=== PATIENT | female | born 1990 | race Caucasian/White ===

== ENCOUNTER 2017-04-18 15:52 | Observation (INO) | payer MEDICAID ==
[~2017-04-18] VITALS: Ht 149.9 cm; Wt 50.5 kg
[~2017-04-18 15:52] MED LIST: CIPR-9 PO; NAPR1TAB34 PO; ZOFR4TAB PO
[2017-04-18 15:54] VITALS: BP 112/61; PULSE 72; RESP 16; TEMP 97.4; O2SAT 97
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
[2017-04-18] MEDS ORDERED: SODIUM CHLOR 0.9% 1000 ML INJ 1,000 ML IV ONE ×2 (16:27→18:15)
[2017-04-18] MEDS ORDERED: SODIUM CHLORIDE 0.9% FLUSH 10 ML FLUSH IVF PRN (16:30)
[2017-04-18] MEDS ORDERED: diphenhydrAMINE HCL 50 MG/ML VIAL IV PUSH ONE (16:30)
[2017-04-18] MEDS ORDERED: ONDANSETRON HCL 4 MG/2 ML VIAL IVP ONE (16:30)
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
[2017-04-18] MEDS ORDERED: NALOXONE HCL 0.4 MG/ML AMP IV PUSH PRN (16:45)
[2017-04-18 17:16] LABS: ALT (GPT) 126 U/L (10-53); ANION GAP 9 MEQ/L (5-15); AST (GOT) 81 U/L (15-37); BICARBONATE 24.3 MEQ/L (21.0-32.0); BLOOD UREA NITROGEN 9 MG/DL (7-18); CHLORIDE 106 MEQ/L (98-107); GLOMERULAR FILTRATION RATE 79 ML/MIN (>89); POTASSIUM 3.4 MEQ/L (3.5-5.1); SODIUM (NA) 139 MEQ/L (136-145)
[2017-04-18 17:18] LABS: ACETAMINOPHEN LESS THAN 2.0 MCG/ML (10.0-30.0); ALKALINE PHOSPHATASE 58 U/L (45-117); TOTAL BILIRUBIN ADULT 0.7 MG/DL (0.2-1.0)
[2017-04-18] MEDS ORDERED: POTASSIUM CHLORIDE 10 MEQ CONTROLLED RELEASE TAB PO ONE (17:30)
[2017-04-18 17:46] VITALS: BP 125/63; PULSE 96; RESP 15; O2SAT 99
[2017-04-18 17:48] VITALS: PULSE 72; RESP 14; O2SAT 99
[2017-04-18 18:10] LABS: BACTERIA, URINE RARE /hpf; BLOOD, URINE NEG (NEG); COMMENT (UR) CULT NOT INDICATED; CULTURE IF INDICATED CULT NOT INDICATED; GLUCOSE,URINE NEG (NEG); KETONE, URINE NEG (NEG); MUCUS URINE FEW /lpf (OCC); NITRITE,URINE NEG (NEG); SQUAMOUS EPITHELIAL CELL URINE 2 /hpf (0-5); URINE COLOR YELLOW (YELLW/STRAW)
[2017-04-18 18:17] LABS: AMPHETAMINE, URINE POS (NEG); BARBITURATES, URINE NEG (NEG); COCAINE, URINE NEG (NEG)
[2017-04-18 18:54] LABS: AUTOMATED NEUTROPHIL # 6.9 TH/MM3 (1.8-7.7); BASOPHIL % 0.4 % (0.0-2.0); EOSINOPHIL # 0.2 TH/MM3 (0-0.4); EOSINOPHIL % 2.2 % (0.0-4.0); HEMATOCRIT 35.7 % (35.0-46.0); HEMO FLAGS DIFF FINAL; LYMPH % 22.5 % (9.0-44.0); LYMPHOCYTE # 2.4 TH/MM3 (1.0-4.8); MEAN CELL VOLUME 83.3 FL (80.0-100.0); MEAN CORPUSCULAR HEMOGLOBIN 27.8 PG (27.0-34.0); MEAN CORPUSCULAR HGB CONC 33.4 % (32.0-36.0); MONO % 10.2 % (0.0-8.0); NEUT % 64.7 % (16.0-70.0); PLATELET COUNT 161 TH/MM3 (150-450); RED BLOOD COUNT 4.29 MIL/MM3 (4.00-5.30); WHITE BLOOD COUNT 10.7 TH/MM3 (4.0-11.0)
[2017-04-18] MEDS ORDERED: NALOXONE HCL 0.4 MG/ML AMP IV PRN (20:00)
[2017-04-18] MEDS ORDERED: SODIUM CHLORIDE 0.9% FLUSH 10 ML FLUSH IV FLUSH PRN (20:00)
[2017-04-18 20:06] VITALS: BP 132/80; PULSE 89; RESP 18; O2SAT 98
[2017-04-18] MEDS: SODIUM CHLORIDE 0.9% FLUSH 10 ML FLUSH IV FLUSH SCH (21:00)
[2017-04-18 21:40] VITALS: BP 105/63; PULSE 87; RESP 17; TEMP 98.5; O2SAT 96
[2017-04-18 22:12] VITALS: PULSE 80
[2017-04-18] MEDS: SODIUM CHLOR 0.9% 1000 ML INJ 1,000 ML IV SCH (22:37)
[2017-04-19] VITALS (9 sets, daily range): BP systolic 85–136; BP diastolic 47–60; PULSE 77–92; RESP 17–20; TEMP 98–102.7; O2SAT 94–100
--- NOTE | 2017-04-19 01:53 | HHI.HP ---
[facility] No Primary Care Physician Admission Diagnosis HYPOXIA, IVDU Diagnoses: Travel History International Travel<30 Days: No Contact w/Intl Traveler <30 Da: No Traveled to Known Affected Are: No History of Present Illness History from ER PA communication, nursing staff, and patient herself, and review of medical records. Patient is extremely poor historian. She stated that she came to the hospital because she knew that something was wrong. She states she was feeling something wrong and she herself called the ambulance. She denies syncope. However she reports that she was very drowsy and not feeling herself all day long. She also reports of palpitations. Otherwise she denies any nausea/vomiting/diarrhea/urinary burning or pain on urination. She denies seeing any blood in her stool or in her urine. She admits to injecting crystal meth last night. She reports that she is itching all over and felt as though things are jumping out of her skin. She reports she has not been injecting for several months and she relapsed last night. Patient is quite drowsy at the time of my exam. She has her eyes closed all this time and she was sitting up to answer my questions. Her boyfriend is at the bedside. However both boyfriend and herself has her eyes closed and had trouble maintaining upright position while sitting. The or clearly quite intoxicated. In the emergency room, patient was also noted to be hypoxic as per the reports. They had given her Narcan times one dose after which her oxygenation picked up. Past Family Social History Past Medical History hepatitis Past Surgical History Reported Medications None Allergies: Coded Allergies: No Known Allergies (Unverified , 11/21/16) Family History Unknown Social History States she smokes occasionally. Reports his social drinking. Denies any regular drinking. Reports IV drug abuse. Physical Exam Vital Signs Vital Signs Date Time Temp Pulse Resp B/P Pulse Ox O2 Delivery O2 Flow Rate FiO2 04/19/17 00:05 98.0 80 17 85/52 98 04/18/17 22:12 80 04/18/17 21:40 98.5 87 17 105/63 96 04/18/17 20:06 89 18 132/80 98 Room Air 04/18/17 19:06 70 15 96 Nasal Cannula 2 04/18/17 17:48 72 14 99 Nasal Cannula 2 04/18/17 17:46 96 15 125/63 99 Nasal Cannula 4 04/18/17 15:54 97.4 72 16 112/61 97 Room Air Physical Exam GENERAL: This is a well-nourished, well-developed patient, intoxicated, sitting up in bed but was having difficulty maintaining her posture because of drowsiness and falling back asleep. SKIN: Multiple skin scratches and track mathew. HEAD: Atraumatic. Normocephalic. No temporal or scalp tenderness. EYES: No scleral icterus. No injection or drainage. ENT: Nose without bleeding, purulent drainage or septal hematoma. Airway patent. NECK: Trachea midline. No JVD Supple, nontender, no meningeal signs. CARDIOVASCULAR: Regular rate and rhythm without murmurs, gallops, or rubs. RESPIRATORY: Clear to auscultation. Breath sounds equal bilaterally. No wheezes , rales, or rhonchi. GASTROINTESTINAL: Abdomen soft, non-tender, nondistended.. No guarding. MUSCULOSKELETAL: Extremities without clubbing, cyanosis, or edema., No calf tenderness. NEUROLOGICAL: Awake and alert. Motor and sensory grossly within normal limits. Normal speech. Laboratory Laboratory Tests Test 04/18/17 04/18/17 04/18/17 14:30 17:40 17:45 Sodium Level 139 Potassium Level 3.4 Chloride Level 106 Carbon Dioxide Level 24.3 Anion Gap 9 Blood Urea Nitrogen 9 Creatinine 0.87 Estimat Glomerular Filtration 79 Rate Random Glucose 82 Lactic Acid Level 1.1 Calcium Level 8.5 Total Bilirubin 0.7 Aspartate Amino Transf 81 (AST/SGOT) Alanine Aminotransferase 126 (ALT/SGPT) Alkaline Phosphatase 58 Total Protein 6.9 Albumin 3.5 Acetaminophen Level LESS THAN 2.0 Ethyl Alcohol Level LESS THAN 3 White Blood Count 10.7 Red Blood Count 4.29 Hemoglobin 11.9 Hematocrit 35.7 Mean Corpuscular Volume 83.3 Mean Corpuscular Hemoglobin 27.8 Mean Corpuscular Hemoglobin 33.4 Concent Red Cell Distribution Width 13.0 Platelet Count 161 Mean Platelet Volume 8.0 Neutrophils (%) (Auto) 64.7 Lymphocytes (%) (Auto) 22.5 Monocytes (%) (Auto) 10.2 Eosinophils (%) (Auto) 2.2 Basophils (%) (Auto) 0.4 Neutrophils # (Auto) 6.9 Lymphocytes # (Auto) 2.4 Monocytes # (Auto) 1.1 Eosinophils # (Auto) 0.2 Basophils # (Auto) 0.0 CBC Comment DIFF FINAL Differential Comment Salicylates Level LESS THAN 1.7 Urine Color YELLOW Urine Turbidity CLEAR Urine pH 6.0 Urine Specific [place] 1.010 Urine Protein NEG Urine Glucose (UA) NEG Urine Ketones NEG Urine Occult Blood NEG Urine Nitrite NEG Urine Bilirubin NEG Urine Urobilinogen LESS THAN 2.0 Urine Leukocyte Esterase NEG Urine RBC 1 Urine WBC 2 Urine Squamous Epithelial 2 Cells Urine Amorphous Sediment RARE Urine Bacteria RARE Urine Mucus FEW Microscopic Urinalysis Comment CULT NOT INDICATED Urine Opiates Screen POS Urine Barbiturates Screen NEG Urine Amphetamines Screen POS Urine Benzodiazepines Screen NEG Urine Cocaine Screen NEG Urine Cannabinoids Screen POS Result Diagram: 04/18/17 1740 04/18/17 1430 Assessment and Plan Assessment and Plan Impression: Altered mental statussecondary to drug intoxication IV drug abusewas crystal meth Hypokalemia Elevated LFTsreports history of hepatitis Plan: Will monitor patient overnight. Supportive care. Potassium was replaced. This patient was consult for discharge planning. DVT prophylaxiswith ambulation.Pt will likely be discharged in am. Should she stay longer, will consider chemical prophylaxis Discussed Condition With patient, boyfriend at the bedside, ER Kim Larios MD April 19, 2017 01:53
[2017-04-19] MEDS: SODIUM CHLORIDE 0.9% FLUSH 10 ML FLUSH IV FLUSH SCH ×2 (09:00→21:47)
[2017-04-19 11:34] LABS: AUTOMATED NEUTROPHIL # 2.9 TH/MM3 (1.8-7.7); BASOPHIL % 0.6 % (0.0-2.0); EOSINOPHIL # 0.2 TH/MM3 (0-0.4); EOSINOPHIL % 3.4 % (0.0-4.0); HEMATOCRIT 33.3 % (35.0-46.0); HEMO FLAGS DIFF FINAL; LYMPH % 22.6 % (9.0-44.0); LYMPHOCYTE # 1.1 TH/MM3 (1.0-4.8); MEAN CELL VOLUME 82.4 FL (80.0-100.0); MEAN CORPUSCULAR HEMOGLOBIN 28.4 PG (27.0-34.0); MEAN CORPUSCULAR HGB CONC 34.5 % (32.0-36.0); MONO % 11.4 % (0.0-8.0); PLATELET COUNT 161 TH/MM3 (150-450); RED BLOOD COUNT 4.04 MIL/MM3 (4.00-5.30); RED CELL DISTRIBUTION WIDTH 13.3 % (11.6-17.2); WHITE BLOOD COUNT 4.7 TH/MM3 (4.0-11.0)
[2017-04-19] MEDS: SODIUM CHLOR 0.9% 1000 ML INJ 1,000 ML IV SCH ×2 (11:34→15:55)
[2017-04-19 11:55] LABS: BICARBONATE 27.3 MEQ/L (21.0-32.0); POTASSIUM 3.8 MEQ/L (3.5-5.1)
--- NOTE | 2017-04-19 12:06 | HHI.PR ---
Subjective Remarks Follow-up for toxic encephalopathy. The patient is awake and alert. She refuses to answer certain questions. She denies any chest pain, shortness of breath, nausea, vomiting. She's been tolerating oral intake. When asked what she took yesterday she states "I don't know". When asked if she injected anything she does not respond. When asked if she knows that her liver problems , she states that she follows with a "stomach doctor" but she will not tell me who. She reports that she has not been ambulating yet because she does not "feel good", although when asked further she does not specify what she means by this. Discussed with RN, no acute issues, patient has been ambulating to the restroom with no difficulties. Objective Vitals Vital Signs Date Time Temp Pulse Resp B/P Pulse Ox O2 Delivery O2 Flow Rate FiO2 04/19/17 11:21 99.6 80 20 88/49 98 04/19/17 07:42 78 04/19/17 07:38 99.0 80 18 111/60 98 04/19/17 04:33 99.2 90 17 90/47 97 04/19/17 00:05 98.0 80 17 85/52 98 04/18/17 22:12 80 04/18/17 21:40 98.5 87 17 105/63 96 04/18/17 20:06 89 18 132/80 98 Room Air 04/18/17 19:06 70 15 96 Nasal Cannula 2 04/18/17 17:48 72 14 99 Nasal Cannula 2 04/18/17 17:46 96 15 125/63 99 Nasal Cannula 4 04/18/17 15:54 97.4 72 16 112/61 97 Room Air I/O 04/18/17 04/18/17 04/18/17 04/19/17 04/19/17 04/19/17 07:00 15:00 23:00 07:00 15:00 23:00 Intake Total 200 ml 200 ml Balance 200 ml 200 ml Intake Oral 200 ml 200 ml Result Diagram: 04/19/17 1055 04/18/17 1160 Objective Remarks GENERAL: Well-developed well-nourished. In no acute distress. SKIN: Warm and dry. No lesions noted. HEENT: Normocephalic. Pupils equal and round. Mucous membranes pink and moist. CARDIOVASCULAR: Regular rate and rhythm. No murmur appreciated. RESPIRATORY: No accessory muscle use. Clear to auscultation. Breath sounds equal bilaterally. GASTROINTESTINAL: Abdomen soft, non-tender, nondistended. Bowel sounds x4. MUSCULOSKELETAL: No obvious deformities. No clubbing or cyanosis. No edema. NEUROLOGICAL: Awake and alert. No focal neurological deficits. Moves upper and lower extremities spontaneously. Normal speech. PSYCHIATRIC: Guarded mood and affect; insight and judgment normal. A/P Assessment and Plan 26-year-old female with a past medical history of hepatitis C and polysubstance abuse who presented with: Toxic encephalopathy: The patient had reportedly used IV Dilaudid and crystal meth yesterday. UDS positive for opiates, amphetamines, and cannabis. IVF. Supportive care. Improving. Transaminitis with a history of hepatitis C: Transaminases are persistently elevated upon review previous labs. Follow-up LFTs today. Continue outpatient GI follow-up. Low-grade fevers: Tmax 99.9. This could definitely be secondary to amphetamine use. UA clear. No leukocytosis. D/W Dr. Doran, monitor overnight for true fevers, further workup if indicated. Discharge Planning If no further signs of infectious etiology, hopefull discharge tomorrow if stable. Lucio Mckeon April 19, 2017 12:06
[2017-04-19] MEDS ORDERED: SODIUM CHLOR 0.9% 1000 ML INJ 1,000 ML IV ONE (12:15)
[2017-04-19 13:09] LABS: INDIRECT BILIRUBIN 0.4 MG/DL (0.0-0.8); TOTAL BILIRUBIN ADULT 0.6 MG/DL (0.2-1.0)
--- NOTE | 2017-04-19 17:25 | EKG ---
Date Performed: 04/18/2017 Time Performed: 17:27:39 PTAGE: 26 years EKG: Sinus rhythm WITH SHORT [place] INTERVAL NONSPECIFIC T-WAVE ABNORMALITY BORDERLINE ECG INTERPRETATION BASED ON A DEFAU LT AGE OF 40 YEARS Compared to the PREVIOUS TRACING , no significant change DOCTOR: Jason Duncan Interpretating Date/Time 04/19/2017 17:24:25
--- NOTE | 2017-04-19 17:28 | EKG ---
Date Performed: 04/18/2017 Time Performed: 16:21:56 PTAGE: 26 years EKG: SINUS BRADYCARDIA WITH MARKED SINUS ARRHYTHMIA BORDERLINE ECG INTERPRETATION BASED ON A DEF CORRINE AGE OF 40 YEARS NO PREVIOUS TRACING DOCTOR: Jason Duncan Interpretating Date/Time 04/19/2017 17:27:49
[2017-04-19] MEDS ORDERED: diphenhydrAMINE HCL 25 MG CAP PO PRN (18:00)
[2017-04-19] MEDS ORDERED: Vancomycin Consult Pharmacy 1 EA OTHER SCH (20:00)
[2017-04-19] MEDS: PIPERACIL-TAZO 4.5 GM PREMIX 100 ML IV SCH (20:43)
--- NOTE | 2017-04-19 21:19 | RADRPT ---
EXAM DATE/TIME: 04/19/2017 20:31 [place] COMPARISON: CHEST PA & LAT, April 29, 2015, 23:57. INDICATIONS : Fever MEDICAL HISTORY : None. SURGICAL HISTORY : None. ENCOUNTER: Initial ACUITY: 1 day PAIN SCORE: 0/10 LOCATION: Bilateral chest FINDINGS: PA and lateral views of the chest demonstrate the lungs to be symmetrically aerated without evidence of mass, infiltrate or effusion. The cardiomediastinal contours are unremarkable. Osseous structure s are intact. CONCLUSION: No evidence of acute cardiopulmonary disease. Aaron Ibrahim MD on April 19, 2017 at 21:17 Board Certified Radiologist. This report was verified electronically.
[2017-04-19] MEDS: VANCOMYCIN INJ 700 MG in SODIUM CHLOR 0.9% 250 ML INJ 250 ML IV SCH (21:48)
[2017-04-20] VITALS (9 sets, daily range): BP systolic 89–127; BP diastolic 53–76; PULSE 64–82; RESP 16–18; TEMP 97.8–100.3; O2SAT 94–100
[2017-04-20] MEDS: PIPERACIL-TAZO 4.5 GM PREMIX 100 ML IV SCH ×4 (02:25→19:41)
[2017-04-20] MEDS: SODIUM CHLOR 0.9% 1000 ML INJ 1,000 ML IV SCH ×2 (02:25→13:09)
[2017-04-20] MEDS: SODIUM CHLORIDE 0.9% FLUSH 10 ML FLUSH IV FLUSH SCH ×2 (09:00→21:00)
[2017-04-20] MEDS: VANCOMYCIN INJ 700 MG in SODIUM CHLOR 0.9% 250 ML INJ 250 ML IV SCH ×2 (09:30→20:47)
--- NOTE | 2017-04-20 11:26 | EC ---
Study Study Date:04/20/2017 STUDY CONCLUSIONS SUMMARY - Procedure narrative: Transthoracic echocardiography. Image quality was good. Scanning was performed from the parasternal, apical, and subcostal acoustic windows. - Left ventricle: The cavity size was normal. Wall thickness was normal. Systolic function was normal. The estimated ejection fraction was in the range of 60% to 65%. Wall motion was normal; there were no regional wall motion abnormalities. - Tricuspid valve: Trace regurgitation. If LV function is below 40, please consider prescribing an ACEI or ARB or document rationale for non-use. PROCEDURE DATA STUDY STATUS: Elective. Procedure: Transthoracic echocardiography. Image quality was good. Scanning was performed from the parasternal, apical, and subcostal acoustic windows. Study completion: The patient tolerated the procedure well. Transthoracic echocardiography. M-mode, complete 2D, complete spectral Doppler, and color Doppler. Patient status: Inpatient. CARDIAC ANATOMY LEFT VENTRICLE: The cavity size was normal. Wall thickness was normal. Systolic function was normal. The estimated ejection fraction was in the range of 60% to 65%. Wall motion was normal; there were no regional wall motion abnormalities. AORTIC VALVE: Trileaflet; normal thickness leaflets. Doppler: Transvalvular velocity was within the normal range. There was no stenosis. No regurgitation. AORTA: Aortic root: The aortic root was normal in size. MITRAL VALVE: Structurally normal valve. Doppler: Transvalvular velocity was within the normal range. There was no evidence for stenosis. No regurgitation. Peak gradient: 4mm Hg (D). LEFT ATRIUM: The atrium was normal in size. RIGHT VENTRICLE: The cavity size was normal. Wall thickness was normal. PULMONIC VALVE: Doppler: Transvalvular velocity was within the normal range. There was no evidence for stenosis. No regurgitation. TRICUSPID VALVE: Structurally normal valve. Doppler: Transvalvular velocity was within the normal range. Trace regurgitation. PULMONARY ARTERY: The main pulmonary artery was normal-sized. Systolic pressure was within the normal range. RIGHT ATRIUM: The atrium was normal in size. PERICARDIUM: There was no pericardial effusion. SYSTEMIC VEINS: Inferior vena cava: The vessel was normal in size. BASIC MEASUREMENTS ADULT Normal Left ventricle LV internal dimension, ED, chordal level, *41.5 mm 43-52 PLAX LV internal dimension, ES, chordal level, 29 mm 23-38 PLAX Fractional shortening, chordal level, PLAX 30 % >29 LV posterior wall thickness, ED 5.45 mm IVS/LVPW ratio, ED 1.22 <1.3 Ventricular septum Septal thickness, ED 6.66 mm Aortic valve Leaflet separation 21 mm 15-26 Left atrium Anterior-posterior dimension 32 mm Right ventricle RV internal dimension, ED, PLAX *18.8 mm 19-38 BASIC MEASUREMENTS ADULT Normal Aortic valve Leaflet separation 21 mm 15-26 Aorta Root diameter, ED 30 mm 20-37 DOPPLER MEASUREMENTS ADULT Normal Mitral valve Peak E-wave velocity 98.7 cm/s Peak A-wave velocity 48.1 cm/s Peak gradient, D 4 mm Hg Peak E/A ratio 2.1 Tricuspid valve Regurgitant peak velocity 217 cm/s Peak RV-RA gradient, S 19 mm Hg Maximal regurgitant velocity 217 cm/s LEGEND: Mean values are shown as u=mean value. Asterisk (*) mathew values outside specified normal range. Prepared and signed by Rivera Garcia [id number]
[2017-04-20 13:19] LABS: AUTOMATED NEUTROPHIL # 1.5 TH/MM3 (1.8-7.7); BASOPHIL % 1.1 % (0.0-2.0); EOSINOPHIL # 0.1 TH/MM3 (0-0.4); EOSINOPHIL % 2.4 % (0.0-4.0); HEMATOCRIT 36.3 % (35.0-46.0); HEMO FLAGS DIFF FINAL; LYMPH % 30.7 % (9.0-44.0); LYMPHOCYTE # 0.9 TH/MM3 (1.0-4.8); MEAN CELL VOLUME 82.9 FL (80.0-100.0); MEAN CORPUSCULAR HEMOGLOBIN 27.3 PG (27.0-34.0); MEAN CORPUSCULAR HGB CONC 32.9 % (32.0-36.0); MONO % 17.7 % (0.0-8.0); NEUT % 48.1 % (16.0-70.0); PLATELET COUNT 143 TH/MM3 (150-450); RED BLOOD COUNT 4.38 MIL/MM3 (4.00-5.30); RED CELL DISTRIBUTION WIDTH 13.3 % (11.6-17.2)
[2017-04-20 13:50] LABS: ALKALINE PHOSPHATASE 57 U/L (45-117); ALT (GPT) 121 U/L (10-53); ANION GAP 9 MEQ/L (5-15); AST (GOT) 74 U/L (15-37); BICARBONATE 27.3 MEQ/L (21.0-32.0); BLOOD UREA NITROGEN 5 MG/DL (7-18); CHLORIDE 107 MEQ/L (98-107); GLOMERULAR FILTRATION RATE 73 ML/MIN (>89); POTASSIUM 3.6 MEQ/L (3.5-5.1); SODIUM (NA) 143 MEQ/L (136-145); TOTAL BILIRUBIN ADULT 0.6 MG/DL (0.2-1.0)
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
[2017-04-20] MEDS ORDERED: LORazepam 0.5 MG TAB PO PRN (18:15)
[2017-04-21 00:45] VITALS: PULSE 81
[2017-04-21] MEDS: PIPERACIL-TAZO 4.5 GM PREMIX 100 ML IV SCH ×2 (02:04→08:23)
[2017-04-21] MEDS: SODIUM CHLOR 0.9% 1000 ML INJ 1,000 ML IV SCH ×2 (02:04→08:23)
[2017-04-21 05:15] VITALS: BP 96/57; PULSE 51; RESP 16; TEMP 98.9; O2SAT 93
[2017-04-21] MEDS: VANCOMYCIN INJ 700 MG in SODIUM CHLOR 0.9% 250 ML INJ 250 ML IV SCH (09:12)
[2017-04-21] MEDS: SODIUM CHLORIDE 0.9% FLUSH 10 ML FLUSH IV FLUSH SCH (09:12)
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
[2017-04-21] MEDS ORDERED: PHARMACY ORDERED LAB ONE (09:45)
[2017-04-21 10:09] VITALS: BP 108/61; PULSE 66; RESP 20; TEMP 96.8; O2SAT 95
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
== END 2017-04-21 11:12 | disposition left against medical advice (07) ==
LOC: NEPE 15:52 → NEDA 19:11 → NEPFCDU 21:34
PROVIDERS: ADMIT Internal Medicine; ATTEND Internal Medicine
DX: R09.02 Hypoxemia (principal); R65.10 Systemic inflammatory response syndrome (SIRS) of non-infectious origin without acute organ dysfunction; A41.9 Sepsis, unspecified organism; G92 Toxic encephalopathy; F19.10 Other psychoactive substance abuse, uncomplicated; F41.9 Anxiety disorder, unspecified; F32.9 Major depressive disorder, single episode, unspecified; F17.200 Nicotine dependence, unspecified, uncomplicated; R00.2 Palpitations; E87.6 Hypokalemia; B19.20 Unspecified viral hepatitis C without hepatic coma; R74.0 Nonspecific elevation of levels of transaminase and lactic acid dehydrogenase [LDH]; I10 Essential (primary) hypertension; D72.819 Decreased white blood cell count, unspecified; R00.0 Tachycardia, unspecified; F15.90 Other stimulant use, unspecified, uncomplicated; L98.9 Disorder of the skin and subcutaneous tissue, unspecified
CPT/HCPCS: 71020; 76937; 80048; 80053; 80076; 80202; 80307; 81001; 83605; 85025; 87040; 93005; 93306; 96374; 96375; 99285; G0378; J1200; J2310; J2405; J2543; J3370; J7030; J7050

== ENCOUNTER 2017-05-14 21:18 | Emergency (ER) | payer MEDICAID ==
[~2017-05-14] VITALS: Ht 152.4 cm; Wt 45.0 kg
[2017-05-14 21:21] VITALS: BP 111/77; PULSE 84; RESP 16; TEMP 98.7; O2SAT 99
[2017-05-14 21:55] LABS: BLOOD, URINE LARGE (NEG); COMMENT (UR) CULTURE INDICATED; CULTURE IF INDICATED CULTURE INDICATED; GLUCOSE,URINE NEG (NEG); KETONE, URINE NEG (NEG); MUCUS URINE FEW /lpf (OCC); NITRITE,URINE NEG (NEG); SQUAMOUS EPITHELIAL CELL URINE 3 /hpf (0-5); URINE COLOR YELLOW (YELLW/STRAW)
--- NOTE | 2017-05-14 22:56 | PD ---
HPI Chief Complaint: Complaint Time Seen by Provider: 22:45 Travel History International Travel<30 days: No Contact w/Intl Traveler<30days: No Traveled to known affect area: No History of Present Illness HPI Patient's 26-year-old female presenting to emergency for evaluation of right flank and groin pain, hematuria. Patient states that she was evaluated at [facility] several days ago, she was treated for STDs and prescribed antibiotics which she has been reportedly compliant with. She continues to have the same symptoms she had then. She reports feeling nauseated but no vomiting. She denies any vaginal bleeding or discharge, her last menstrual cycle was in the beginning of March. She denies any fever, chills, chest pain, shortness of breath. Patient does admit to using heroin and meth recently. She has a history of hepatitis C. [employer] Past Medical History Asthma: No Blood Disorders: No Depression: No Heart Rhythm Problems: No Cancer: No Cardiovascular Problems: No High Cholesterol: No Chemotherapy: No Chest Pain: No Congestive Heart Failure: No COPD: No Diabetes: No Diminished Hearing: No Endocrine: No Gastrointestinal Disorders: Yes Genitourinary: No Hepatitis: Yes (C) Immune Disorder: No Musculoskeletal: No Neurologic: No Psychiatric: No Reproductive: No Respiratory: No Radiation Therapy: No Sleep Apnea: No Thyroid Disease: No Tetanus Vaccination: Unknown Influenza Vaccination: Yes ?: Not LMP: NEGATIVE PREG TEST 1 WEEK AGO : 2 Para: 1 : 1 Past Surgical History Gynecologic Surgery: Yes () Other Surgery: Yes Social History Alcohol Use: No Tobacco Use: Yes Substance Use: Yes (heroin and meth) Allergies-Medications (Allergen,Severity, Reaction): Coded Allergies: No Known Allergies (Unverified , 11/21/16) Reported Meds & Prescriptions Reported Meds & Active Scripts Active No Active Prescriptions or Reported Medications Review of Systems Except as stated in HPI: all other systems reviewed are Neg Gastrointestinal: Positive: Nausea, Abdominal Pain Genitourinary: Positive: Hematuria, Pelvic Pain, Flank Pain, No: Discharge, Vaginal Bleeding Physical Exam Narrative GENERAL: Thin, well-developed, well-nourished, alert female. Resting comfortably in no acute distress. SKIN: Focused skin assessment warm/dry. HEAD: Atraumatic. Normocephalic. EYES: Pupils equal and round. No scleral icterus. No injection or drainage. ENT: No nasal bleeding or discharge. Mucous membranes pink and moist. NECK: Trachea midline. No JVD. CARDIOVASCULAR: Regular rate and rhythm. No murmur appreciated. RESPIRATORY: No accessory muscle use. Clear to auscultation. Breath sounds equal bilaterally. GASTROINTESTINAL: Abdomen soft, non-tender, nondistended. Hepatic and splenic margins not palpable. MUSCULOSKELETAL: No obvious deformities. No clubbing. No cyanosis. No edema. Positive CVAT on the right GENITOURINARY: Normal external genitalia without lesions or erythema. Vaginal vault without blood or drainage. Cervical os was closed without drainage. No cervical motion tenderness. Uterus nontender and nonenlarged. Left adnexa nontender without masses. Right adnexa was mildly tender to palpation, no masses noted. NEUROLOGICAL: Awake and alert. No obvious cranial nerve deficits. Motor grossly within normal limits. Normal speech. PSYCHIATRIC: Appropriate mood and affect; insight and judgment normal. Data Data Last Documented VS Vital Signs Date Time Temp Pulse Resp B/P Pulse Ox O2 Delivery O2 Flow Rate FiO2 05/14/17 22:00 16 05/14/17 21:21 98.7 84 111/77 99 Orders Urinalysis - C+S If Indicated (05/14/17 21:25) Urine Culture (05/14/17 21:28) Gc And Chlamydia Pcr (05/14/17 22:50) Wet Prep Profile (05/14/17 22:50) Ed Urine Pregnancytest Poc (05/14/17 22:50) Ct Abd/Pel W/O Iv Contrast (05/14/17 ) Labs Laboratory Tests Test 05/14/17 05/14/17 21:28 22:55 Urine Color YELLOW Urine Turbidity CLEAR Urine pH 7.0 Urine Specific Yancey 1.021 Urine Protein TRACE mg/dL Urine Glucose (UA) NEG mg/dL Urine Ketones NEG mg/dL Urine Occult Blood LARGE Urine Nitrite NEG Urine Bilirubin NEG Urine Urobilinogen LESS THAN 2.0 MG/DL Urine Leukocyte Esterase NEG Urine RBC /hpf Urine WBC 17 /hpf Urine Squamous Epithelial 3 /hpf Cells Urine Amorphous Sediment RARE Urine Mucus FEW /lpf Microscopic Urinalysis Comment CULTURE INDICATED Clue Cells (Wet Prep) NONE SEEN Vaginal Trichomonas (Wet Prep) NONE SEEN Vaginal Yeast (Wet Prep) NONE SEEN MDM Medical Decision Making Medical Screen Exam Complete: Yes Emergency Medical Condition: Yes Interpretation(s) Last Impressions Abdomen/Pelvis CT 05/14/17 0000 Signed Impressions: Service Date/Time: Sunday, May 14, 2017 23:24 - CONCLUSION: Negative noncontrast CT of the abdomen and pelvis. No obstruction, stones, inflammatory changes or other acute abnormality demonstrated. Aaron Ibrahim MD Laboratory Tests Test 05/14/17 05/14/17 21:28 22:55 Urine Color YELLOW Urine Turbidity CLEAR Urine pH 7.0 Urine Specific Yancey 1.021 Urine Protein TRACE mg/dL Urine Glucose (UA) NEG mg/dL Urine Ketones NEG mg/dL Urine Occult Blood LARGE Urine Nitrite NEG Urine Bilirubin NEG Urine Urobilinogen LESS THAN 2.0 MG/DL Urine Leukocyte Esterase NEG Urine RBC /hpf Urine WBC 17 /hpf Urine Squamous Epithelial 3 /hpf Cells Urine Amorphous Sediment RARE Urine Mucus FEW /lpf Microscopic Urinalysis Comment CULTURE INDICATED Clue Cells (Wet Prep) NONE SEEN Vaginal Trichomonas (Wet Prep) NONE SEEN Vaginal Yeast (Wet Prep) NONE SEEN Vital Signs Date Time Temp Pulse Resp B/P Pulse Ox O2 Delivery O2 Flow Rate FiO2 05/14/17 22:00 16 05/14/17 21:21 98.7 84 16 111/77 99 Differential Diagnosis Ovarian cyst versus kidney stone versus UTI versus pyelonephritis versus appendicitis versus other Narrative Course Patient is a 26-year-old female presenting to emergency department for evaluation of hematuria and flank/pelvic pain. She was treated empirically for STDs several days ago at [facility] however she has had no vaginal discharge. She was also prescribed ciprofloxacin which she reports compliant with since that time. Pelvic exam was performed. GC, chlamydia, wet prep sent. Will defer treatment until labs have resulted since patient is asymptomatic and was recently treated empirically. CT scan of the abdomen and pelvis without IV contrast is ordered and pending to rule out renal calculi. CT scan of the abdomen and pelvis is negative for acute abnormality. We'll change patient's antibiotics due to continued urinary symptoms/hematuria. Patient was given strict return precautions. Patient was encouraged to increase fluid intake. She is encouraged follow-up with her primary doctor. Patient will be notified of results of GC and chlamydia however she was just treated at [facility] and has no symptoms. Patient stable for discharge. Discussed patient presentation and results with my attending physician prior to patient's discharge. Diagnosis Primary Impression: UTI (lower urinary tract infection) Referrals: [facility] Primary Care Physician Patient Instructions: General Instructions, Urinary Tract Infection in Women ( ED) Additional Instructions: Follow-up with your primary doctor Return to emergency department immediately for any new or worsening symptoms Complete full course of new antibiotic as prescribed Avoid illicit drug use Med/Other Pt SpecificInfo: Prescription(s) given Scripts Nitrofurantoin Monohydrate Macrocrystals 100 Mg [id number] Mg PO BID 7 Days Ref 0 Prov:Lilly Olmstead 05/14/17 Disposition: 01 DISCHARGE HOME Condition: Stable Lilly Olmstead May 14, 2017 22:56
--- NOTE | 2017-05-14 23:39 | RADRPT ---
EXAM DATE/TIME: 05/14/2017 23:24 [facility] COMPARISON: CT ABDOMEN & PELVIS W/O CONTRAST, November 21, 2016, 21:13. INDICATIONS : Hematuria and cramping. ORAL CONTRAST: No oral contrast ingested. RADIATION DOSE: 3.93 CTDIvol (mGy) MEDICAL HISTORY : Hepatitis C. SURGICAL HISTORY : None. ENCOUNTER: Initial ACUITY: 1 day PAIN SCALE: 4/10 LOCATION: Bilateral lower quadrant TECHNIQUE: Volumetric scanning of the abdomen and pelvis was performed. Using automated exposure control and ad justment of the mA and/or kV according to patient size, radiation dose was kept as low as reasonably achievable to obtain optimal diagnostic quality images. FINDINGS: LOWER LUNGS: The visualized lower lungs are clear. LIVER: Homogeneous density without lesion. There is no dilation of the biliary tree. No calcified gallston es. SPLEEN: Normal size without lesion. PANCREAS: Within normal limits. KIDNEYS: Normal in size and shape. There is no mass, stone, or hydronephrosis. ADRENAL GLANDS: Within normal limits. VASCULAR: There is no aortic aneurysm. BOWEL/MESENTERY: The stomach, small bowel, and colon demonstrate no acute abnormality. There is no free intraperitone al air or fluid. Appendix well visualized. Faintly increased density again seen within the lumen. No dilatation, wall thickening or inflammatory changes. ABDOMINAL WALL: Within normal limits. RETROPERITONEUM: There is no lymphadenopathy. BLADDER: No wall thickening or mass. REPRODUCTIVE: Within normal limits. INGUINAL: There is no lymphadenopathy or hernia. MUSCULOSKELETAL: Within normal limits for patient age. CONCLUSION: Negative noncontrast CT of the abdomen and pelvis. No obstruction, stones, inflammatory changes or ot her acute abnormality demonstrated. Aaron Ibrahim MD on May 14, 2017 at 23:35 Board Certified Radiologist. This report was verified electronically.
[2017-05-14] MEDS ORDERED: NITR100C4 PO (23:50)
[2017-05-15 02:14] LABS: CHLAMYDIA PCR NOT DETECTED (NOT DETECT); NEISSERIA PCR NOT DETECTED (NOT DETECT)
== END 2017-05-15 00:16 | disposition home or self-care (01) ==
LOC: NEPK 21:18
DX: N39.0 Urinary tract infection, site not specified (principal); B19.20 Unspecified viral hepatitis C without hepatic coma; Z72.0 Tobacco use; F11.20 Opioid dependence, uncomplicated; F15.20 Other stimulant dependence, uncomplicated
CPT/HCPCS: 74176; 81001; 84703; 87086; 87210; 87491; 87591; 99284

== ENCOUNTER 2017-06-11 12:37 | Emergency (ER) | payer MEDICAID ==
[~2017-06-11] VITALS: Ht 149.9 cm; Wt 48.0 kg
[~2017-06-11 12:37] MED LIST changes: -CIPR-9 PO; -NAPR1TAB34 PO; +NITR100C4 PO; -ZOFR4TAB PO
[2017-06-11 12:45] VITALS: BP 112/56; PULSE 82; RESP 16; TEMP 98.7; O2SAT 98
[2017-06-11 12:49] VITALS: BP 112/56; PULSE 83; RESP 16; O2SAT 97
[2017-06-11] MEDS ORDERED: ONDANSETRON ODT 4 MG TAB PO ONE (13:00)
[2017-06-11] MEDS ORDERED: IBUPROFEN 800 MG TAB PO ONE (13:00)
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
== END 2017-06-11 17:37 | disposition home or self-care (01) ==
LOC: NEPE 12:37
DX: T76.21XA Adult sexual abuse, suspected, initial encounter (principal); M79.606 Pain in leg, unspecified; R10.2 Pelvic and perineal pain; R11.0 Nausea; F17.200 Nicotine dependence, unspecified, uncomplicated
CPT/HCPCS: 99281; 99283

== ENCOUNTER 2017-06-30 13:26 | Inpatient (IN) | payer MEDICAID ==
[~2017-06-30] VITALS: Ht 149.9 cm; Wt 55.5 kg
[~2017-06-30 13:26] MED LIST changes: -NITR100C4 PO; +PROPOFOL 200 MG/20 ML AMP IV ONE; +fentaNYL CITRATE 250 MCG/5 ML AMP IV ONE
[2017-06-30 13:29] VITALS: BP 121/74; PULSE 99; RESP 17; TEMP 98.1; O2SAT 99
--- NOTE | 2017-06-30 13:47 | PD ---
Physical Exam Date Seen by Provider: Jun 30, 2017 Time Seen by Provider: 13:44 Data Data Last Documented VS Vital Signs Date Time Temp Pulse Resp B/P Pulse Ox O2 Delivery O2 Flow Rate FiO2 06/30/17 13:29 98.1 99 17 121/74 99 MDM Supervised Visit with JONATAN: No Narrative Course 26 YO F with complaint of 10/10 groin pain and posterior leg pain x 2 weeks. Endorses ambulation with a limp. States "there is a red area." Seen at [facility] twice for same. Vitals reviewed. Patient seen in triage, awaiting bed placement. Scripts No Active Prescriptions or Reported Meds Nancy Canas Jun 30, 2017 13:47
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
[2017-06-30] MEDS ORDERED: LIDOCAINE 1%/EPINEPHrine 1:100,000 SOLN 20 ML VIAL INFIL ONE (15:00)
[2017-06-30] MEDS ORDERED: SODIUM CHLOR 0.9% 1000 ML INJ 1,000 ML IV SCH (15:19)
[2017-06-30] MEDS ORDERED: ONDANSETRON HCL 4 MG/2 ML VIAL IVP ONE (15:30)
[2017-06-30] MEDS ORDERED: SODIUM CHLORIDE 0.9% FLUSH 10 ML FLUSH IV FLUSH PRN ×2 (15:30→19:45)
[2017-06-30 16:08] VITALS: BP 102/69; PULSE 82; RESP 16; O2SAT 100
--- NOTE | 2017-06-30 16:38 | PD ---
Data Data Last Documented VS Vital Signs Date Time Temp Pulse Resp B/P Pulse Ox O2 Delivery O2 Flow Rate FiO2 06/30/17 16:08 82 16 102/69 100 Room Air 06/30/17 13:29 98.1 Orders Lidocai-Epi 1%-1:100,000 Inj (Xylocaine- (06/30/17 15:00) Complete Blood Count With Diff (06/30/17 15:19) Comprehensive Metabolic Panel (06/30/17 15:19) Lactic Acid (06/30/17 15:19) Urinalysis - C+S If Indicated (06/30/17 15:19) Ct Abd/Pel W Iv Contrast(Rout) (06/30/17 15:19) Iv Access Insert/Monitor (06/30/17:19) Ecg Monitoring (06/30/17:19) Oximetry (06/30/17 15:19) NPO (06/30/17 15:19) Ondansetron Inj (Zofran Inj) (06/30/17 15:30) Sodium Chlor 0.9% 1000 Ml Inj (Ns 1000 M (06/30/17 15:19) Sodium Chloride 0.9% Flush (Ns Flush) (06/30/17 15:30) Ed Urine Pregnancytest Poc (06/30/17 15:19) MDM Supervised Visit with JONATAN: Yes Narrative Course The history, exam, and medical decision-making in the associated midlevel provider note were completed with my assistance. I reviewed and agree with the findings presented. I attest that I had a [id number] encounter with the patient on the same day, and personally performed and documented my assessment and findings in the medical record. *My assessment and Findings: This is a 26-year-old female with history of IV drug use who presents to the emergency department with swelling and pain in her right groin. She has evidence of a large fluid collection right along the groin extending towards the inguinal canal. We performed a bedside ultrasound showing that the pocket is at least 4 cm deep. I don't think it's a hernia but we are going to get some CT imaging just to determine the extent of this infection and I think she may require general surgery for incision and drainage given the proximity to vascular structures. Scripts No Active Prescriptions or Reported Meds Condition: Milka Boogie MD Jun 30, 2017 16:38
[2017-06-30] MEDS ORDERED: IOHEXOL 350 MG/ML 10 ML VIAL (for RAD DIAG) IV ONE (16:50)
[2017-06-30 17:03] LABS: AUTOMATED NEUTROPHIL # 8.2 TH/MM3 (1.8-7.7); BASOPHIL % 0.4 % (0.0-2.0); EOSINOPHIL # 0.1 TH/MM3 (0-0.4); EOSINOPHIL % 1.2 % (0.0-4.0); HEMATOCRIT 39.7 % (35.0-46.0); HEMO FLAGS DIFF FINAL; LYMPH % 17.9 % (9.0-44.0); MEAN CELL VOLUME 85.4 FL (80.0-100.0); MEAN CORPUSCULAR HEMOGLOBIN 27.9 PG (27.0-34.0); MEAN CORPUSCULAR HGB CONC 32.6 % (32.0-36.0); MONO % 8.1 % (0.0-8.0); NEUT % 72.4 % (16.0-70.0); PLATELET COUNT 197 TH/MM3 (150-450); RED BLOOD COUNT 4.65 MIL/MM3 (4.00-5.30); RED CELL DISTRIBUTION WIDTH 13.6 % (11.6-17.2); WHITE BLOOD COUNT 11.3 TH/MM3 (4.0-11.0)
--- NOTE | 2017-06-30 17:09 | RADRPT ---
EXAM DATE/TIME: 06/30/2017 16:47 [facility] COMPARISON: No previous studies available for comparison. INDICATIONS : Right groin pain and swelling for two weeks. IV CONTRAST: 72 cc Omnipaque 350 (iohexol) IV ORAL CONTRAST: No oral contrast ingested. RADIATION DOSE: 9.96 CTDIvol (mGy) MEDICAL HISTORY : Hepatitis C. SURGICAL HISTORY : None. ENCOUNTER: Initial ACUITY: 2 weeks PAIN SCALE: 6/10 LOCATION: Right lower quadrant TECHNIQUE: Volumetric scanning of the abdomen and pelvis was performed. Using automated exposure control and ad justment of the mA and/or kV according to patient size, radiation dose was kept as low as reasonably achievable to obtain optimal diagnostic quality images. DICOM format image data is available electro nically for review and comparison. FINDINGS: LOWER LUNGS: The visualized lower lungs are clear. LIVER: Homogeneous density without lesion. There is no dilation of the biliary tree. No calcified gallston es. SPLEEN: Normal size without lesion. PANCREAS: Within normal limits. KIDNEYS: Normal in size and shape. There is no mass, stone or hydronephrosis. ADRENAL GLANDS: Within normal limits. VASCULAR: There is no aortic aneurysm. BOWEL/MESENTERY: The stomach, small bowel, and colon demonstrate no acute abnormality. There is no free intraperitone al air or fluid. Normal appendix. ABDOMINAL WALL: Within normal limits. RETROPERITONEUM: There is no lymphadenopathy. BLADDER: No wall thickening or mass. REPRODUCTIVE: 13 mm ovarian cyst on the right INGUINAL: There is a right inguinal fluid collection that measures approximately 4.3 x 6.9 x 6.5 cm in size. Wa ll is approximately 1-2 mm in maximal thickness. The fluid collection itself is fairly simple appeari ng but there is clearly some induration and upper limits of normal to mildly enlarged lymph nodes in the surrounding inguinal fat. The neurovascular structures appear normal. Superficial margin of the f luid collection is just beneath the skin. More distally in the subcutaneous fat along the psoas muscl e is an approximately 1.0 x 3.2 x 4.8 cm fluid collection. MUSCULOSKELETAL: Within normal limits for patient age. CONCLUSION: 1. Right inguinal fluid collection with surrounding edema and induration in the subcutaneous fat and mild lymphadenopathy. The fluid collection may represent a necrotic and/or cystic lymph node/lymphoce le or an abscess in the proper clinical setting. An abscess could also be developing medially of the upper thigh as well, with a small, mildly organized fluid collection in the deep subcutaneous fat nivia ng the superficial margin of the greater psoas muscle. Other than mild mass effect, the neurovascular structures are normal. 2. No acute abnormality seen within the pelvic cavity. Aaron Ibrahim MD on June 30, 2017 at 17:01 Board Certified Radiologist. This report was verified electronically.
[2017-06-30 17:13] LABS: BLOOD, URINE NEG (NEG); COMMENT (UR) CULT NOT INDICATED; CULTURE IF INDICATED CULT NOT INDICATED; GLUCOSE,URINE NEG (NEG); KETONE, URINE 10 mg/dL (NEG); MUCUS URINE FEW /lpf (OCC); NITRITE,URINE NEG (NEG); PH, URINE 7.5 (5.0-8.5); SQUAMOUS EPITHELIAL CELL URINE 3 /hpf (0-5); URINE COLOR YELLOW (YELLW/STRAW)
[2017-06-30 17:20] LABS: ANION GAP 8 MEQ/L (5-15); AST (GOT) 106 U/L (15-37); BICARBONATE 26.3 MEQ/L (21.0-32.0); BLOOD UREA NITROGEN 14 MG/DL (7-18); CHLORIDE 100 MEQ/L (98-107); GLOMERULAR FILTRATION RATE 94 ML/MIN (>89); POTASSIUM 3.9 MEQ/L (3.5-5.1); SODIUM (NA) 134 MEQ/L (136-145)
[2017-06-30 17:22] LABS: ALT (GPT) 191 U/L (10-53)
[2017-06-30 17:24] LABS: ALKALINE PHOSPHATASE 71 U/L (45-117); TOTAL BILIRUBIN ADULT 1.6 MG/DL (0.2-1.0)
[2017-06-30] MEDS ORDERED: PIPERACIL-TAZO 4.5 GM PREMIX 100 ML IV ONE (17:30)
[2017-06-30] MEDS ORDERED: VANCOMYCIN INJ 1,000 MG in SODIUM CHLOR 0.9% 250 ML INJ 250 ML IV ONE (17:30)
[2017-06-30] MEDS ORDERED: KETOROLAC TROMETHAMINE 60 MG/2 ML (IM) VIAL IM ONE (18:15)
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
[2017-06-30 19:33] VITALS: BP 97/60; PULSE 84; RESP 16; O2SAT 100
[2017-06-30 19:34] LABS: APTT (PATIENT) 34.3 SEC (24.3-30.1); INTERNATIONAL NORMALIZED RATIO 1.1 RATIO; PROTHROMBIN TIME - PATIENT 11.9 SEC (9.8-11.6)
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
[2017-06-30] MEDS ORDERED: BISACODYL 10 MG SUPP RECTAL PRN (19:45)
[2017-06-30] MEDS ORDERED: SENNOSIDES 8.6 MG TAB PO PRN (19:45)
[2017-06-30] MEDS ORDERED: Vancomycin Consult Pharmacy 1 EA OTHER SCH (19:45)
[2017-06-30] MEDS ORDERED: MAGNESIUM HYDROXIDE SUSP 30 ML CUP PO PRN (19:45)
[2017-06-30] MEDS ORDERED: diphenhydrAMINE HCL 25 MG CAP PO PRN (19:45)
[2017-06-30] MEDS ORDERED: ACETAMINOPHEN 325 MG TAB PO PRN (19:45)
[2017-06-30] MEDS ORDERED: LACTULOSE SYRUP 20 GM/30 ML CUP PO PRN (19:45)
[2017-06-30 20:00] VITALS: BP 99/61; PULSE 82; RESP 18; TEMP 98.3; O2SAT 100
[2017-06-30] MEDS: DOCUSATE SODIUM 50 MG/SENNA 8.6 MG TAB PO SCH (21:00)
[2017-06-30] MEDS: SODIUM CHLOR 0.9% 1000 ML INJ 1,000 ML IV SCH ×2 (21:00→22:15)
[2017-06-30] MEDS: SODIUM CHLORIDE 0.9% FLUSH 10 ML FLUSH IV FLUSH SCH (21:00)
[2017-06-30] MEDS ORDERED: LACTATED RINGER'S 1000 ML IV PRN (21:15)
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
--- NOTE | 2017-06-30 21:58 | HHI.PR ---
Immediate Post Op Note Procedure Date: Jun 30, 2017 Pre Op Diagnosis: right groin fluid collection r/o abscess Post Op Diagnosis: same Surgeon: Livan Kwon MD [facility] Chemist(s): see or sheet Procedure: incision and drainage of right groin lymphocele with vac Findings: straw fluid Complications: none Specimen(s) removed: fluid sent for cx Estimated blood loss: 5cc Anesthesia: General Drains: Hemovac Patient to: PACU Patient Condition: Good Livan Kwon MD Jun 30, 2017 21:58
[2017-06-30] MEDS ORDERED: DO NOT ADM ANY ANTICOAGULANT DRUGS PRN (22:00)
[2017-06-30] MEDS ORDERED: *morphine SULFATE 8 MG/ML PERIprocedure ONLY ONE (22:24)
[2017-07-01] VITALS (7 sets, daily range): BP systolic 92–113; BP diastolic 56–72; PULSE 75–90; RESP 17–18; TEMP 97–97.8; O2SAT 97–100
[2017-07-01] MEDS: ONDANSETRON HCL 4 MG/2 ML VIAL IVP PRN ×3 (00:03→22:39)
[2017-07-01] MEDS: NICOTINE 14 MG/24 HR PATCH T-DERMAL SCH ×2 (00:33→09:45)
[2017-07-01] MEDS: LORazepam 2 MG/ML VIAL IV PUSH PRN ×2 (03:45→22:39)
[2017-07-01] MEDS ORDERED: VANCOMYCIN INJ 750 MG in SODIUM CHLOR 0.9% 250 ML INJ 250 ML IV SCH (06:00)
[2017-07-01] MEDS: SODIUM CHLORIDE 0.9% FLUSH 10 ML FLUSH IV FLUSH SCH ×2 (09:00→19:34)
[2017-07-01] MEDS ORDERED: CEFEPIME INJ 1,000 MG in SODIUM CHLORIDE 0.9% INJ 100 ML IV SCH (09:00)
[2017-07-01] MEDS: REMOVE OLD PATCH T-DERMAL SCH (09:00)
[2017-07-01] MEDS: DOCUSATE SODIUM 50 MG/SENNA 8.6 MG TAB PO SCH ×2 (09:32→19:35)
[2017-07-01] MEDS: SODIUM CHLOR 0.9% 1000 ML INJ 1,000 ML IV SCH (09:47)
--- NOTE | 2017-07-01 11:36 | HHI.PR ---
Subjective Remarks Follow-up for groin pain Groin pain still severe. Nauseated but no vomiting. No fever. Status post I& D yesterday. Cultures are pending. Objective Vitals Vital Signs Date Time Temp Pulse Resp B/P Pulse Ox O2 Delivery O2 Flow Rate FiO2 07/01/17 08:00 97.0 84 17 106/72 100 07/01/17 06:23 17 07/01/17 04:25 97.0 88 18 92/64 100 07/01/17 00:24 97.1 75 18 106/65 98 06/30/17 22:30 97.7 71 16 103/59 98 Room Air 06/30/17 22:15 80 24 99/54 100 Nasal Cannula 2 06/30/17 22:03 97.7 84 20 98/60 99 Nasal Cannula 2 06/30/17 20:00 98.3 82 18 99/61 100 06/30/17 19:33 84 16 97/60 100 Room Air 06/30/17 16:08 82 16 102/69 100 Room Air 06/30/17 13:29 98.1 99 17 121/74 99 I/O 06/30/17 06/30/17 06/30/17 07/01/17 07/01/17 07/01/17 07:00 15:00 23:00 07:00 15:00 23:00 Intake Total 600 ml 671 ml Output Total 10 ml 175 ml Balance 590 ml 671 ml -175 ml Intake Oral 0 ml IV Total 200 ml 671 ml Other 400 ml Output Urine Total 0 ml Emesis 175 ml Estimated Blood Loss 10 ml Other 0 ml # Voids 0 2 Result Diagram: 06/30/17 1605 06/30/17 1605 Objective Remarks GENERAL: Young white female in no acute distress. Crying. CARDIOVASCULAR: Regular rate and rhythm. No obvious murmurs to auscultation. No chest tenderness to palpation. RESPIRATORY: No obvious rhonchi or wheezing. Clear to auscultation. Breath sounds equal bilaterally. GASTROINTESTINAL: Abdomen soft, non-tender, nondistended. BS normal. MUSCULOSKELETAL: Extremities without clubbing, cyanosis, or edema. No obvious deformities. Right groin, VAC in place, mildly tender. NEUROLOGICAL: Awake, alert and oriented x4. No focal neurologic deficits. Moving both upper and lower extremities spontaneously. A/P Problem List: (1) Groin abscess ICD Code: L02.214 Status: Acute (2) IVDU (intravenous drug user) ICD Code: F19.90 Status: Acute (3) Elevated LFTs ICD Code: R79.89 Status: Acute (4) Tobacco abuse ICD Code: Z72.0 Status: Acute Assessment and Plan This is a 26-year-old female presenting with groin abscess Groin Abscess: progressive redness/swelling to right groin x2 wks. Afebrile, mild leukocytosis. WBC 11.3. CT Abd/Pelvis w/ right inguinal fluid collection and surrounding edema/induration, likely necrotic lymph node or abscess, also w / developing abscess medial thigh, images reviewed by me. Gen Sx consulted, status post I&D 06/30/17, continue vancomycin and Zosyn, follow-up culture results. Continue pain control with oxycodone and intravenous morphine for breakthrough. IVDU: w/ Heroin/Meth. Ativan prn for withdrawal. Elevated LFTs: Stable in comparison to previous labs from 04/19/17, secondary to h/o Hepatitic C, improving, check in a few days. Tobacco Abuse: Pt counselled. NicoDerm prn if needed. DVT Prophylaxis: Mechanical contraindication secondary to LE wound. Pt ambulatory. Low risk. Discharge Planning When medically ready Arcadio Edward MD Jul 01, 2017 11:36
[2017-07-01 11:58] LABS: AUTOMATED NEUTROPHIL # 4.6 TH/MM3 (1.8-7.7); BASOPHIL # 0.1 TH/MM3 (0-0.2); BASOPHIL % 0.8 % (0.0-2.0); EOSINOPHIL # 0.3 TH/MM3 (0-0.4); EOSINOPHIL % 3.6 % (0.0-4.0); HEMATOCRIT 34.7 % (35.0-46.0); HEMO FLAGS DIFF FINAL; LYMPH % 19.6 % (9.0-44.0); LYMPHOCYTE # 1.4 TH/MM3 (1.0-4.8); MEAN CELL VOLUME 84.7 FL (80.0-100.0); MEAN CORPUSCULAR HEMOGLOBIN 28.6 PG (27.0-34.0); MEAN CORPUSCULAR HGB CONC 33.7 % (32.0-36.0); MONO % 9.6 % (0.0-8.0); NEUT % 66.4 % (16.0-70.0); PLATELET COUNT 167 TH/MM3 (150-450); RED CELL DISTRIBUTION WIDTH 13.2 % (11.6-17.2); WHITE BLOOD COUNT 6.9 TH/MM3 (4.0-11.0)
[2017-07-01 12:29] LABS: ALKALINE PHOSPHATASE 60 U/L (45-117); ALT (GPT) 159 U/L (10-53); ANION GAP 10 MEQ/L (5-15); AST (GOT) 95 U/L (15-37); BICARBONATE 23.8 MEQ/L (21.0-32.0); BLOOD UREA NITROGEN 11 MG/DL (7-18); CHLORIDE 104 MEQ/L (98-107); GLOMERULAR FILTRATION RATE 87 ML/MIN (>89); POTASSIUM 3.6 MEQ/L (3.5-5.1); SODIUM (NA) 138 MEQ/L (136-145); TOTAL BILIRUBIN ADULT 1.2 MG/DL (0.2-1.0)
[2017-07-01] MEDS: VANCOMYCIN INJ 750 MG in SODIUM CHLOR 0.9% 250 ML INJ 250 ML IV SCH ×2 (14:46→22:32)
--- NOTE | 2017-07-01 14:59 | HHI.PR ---
Subjective Subjective Notes DAILY PROGRESS NOTE FOR SURGICAL ATTENDING, DR. KENNY BO Feels better VAC in place Objective Vitals/I&O Vital Signs Date Time Temp Pulse Resp B/P Pulse Ox O2 Delivery O2 Flow Rate FiO2 07/01/17 12:00 97.3 90 17 99/70 98 06/30/17 22:30 Room Air 06/30/17 22:15 2 Labs Laboratory Tests Test 06/30/17 06/30/17 06/30/17 07/01/17 16:03 16:05 18:50 10:10 Lactic Acid Level 1.0 White Blood Count 11.3 6.9 Red Blood Count 4.65 4.10 Hemoglobin 13.0 11.7 Hematocrit 39.7 34.7 Mean Corpuscular Volume 85.4 84.7 Mean Corpuscular Hemoglobin 27.9 28.6 Mean Corpuscular Hemoglobin 32.6 33.7 Concent Red Cell Distribution Width 13.6 13.2 Platelet Count 197 167 Mean Platelet Volume 8.2 8.2 Neutrophils (%) (Auto) 72.4 66.4 Lymphocytes (%) (Auto) 17.9 19.6 Monocytes (%) (Auto) 8.1 9.6 Eosinophils (%) (Auto) 1.2 3.6 Basophils (%) (Auto) 0.4 0.8 Neutrophils # (Auto) 8.2 4.6 Lymphocytes # (Auto) 2.0 1.4 Monocytes # (Auto) 0.9 0.7 Eosinophils # (Auto) 0.1 0.3 Basophils # (Auto) 0.0 0.1 CBC Comment DIFF FINAL DIFF FINAL Differential Comment Urine Color YELLOW Urine Turbidity HAZY Urine pH 7.5 Urine Specific [place] 1.024 Urine Protein TRACE Urine Glucose (UA) NEG Urine Ketones 10 Urine Occult Blood NEG Urine Nitrite NEG Urine Bilirubin NEG Urine Urobilinogen 2.0 Urine Leukocyte Esterase NEG Urine WBC 2 Urine Squamous Epithelial 3 Cells Urine Amorphous Sediment OCC Urine Mucus FEW Microscopic Urinalysis Comment CULT NOT INDICATED Sodium Level 134 138 Potassium Level 3.9 3.6 Chloride Level 100 104 Carbon Dioxide Level 26.3 23.8 Anion Gap 8 10 Blood Urea Nitrogen 14 11 Creatinine 0.75 0.80 Estimat Glomerular Filtration 94 87 Rate Random Glucose 76 80 Calcium Level 8.8 8.1 Total Bilirubin 1.6 1.2 Aspartate Amino Transf 106 95 (AST/SGOT) Alanine Aminotransferase 191 159 (ALT/SGPT) Alkaline Phosphatase 71 60 Total Protein 7.8 6.7 Albumin 4.1 3.4 Prothrombin Time 11.9 Prothromb Time International 1.1 Ratio Activated Partial 34.3 Thromboplast Time Date/Time Procedure Status Source Growth 06/30/17 21:12 Gram Stain - Final Resulted Abscess Groin 06/30/17 21:12 Wound Culture - Preliminary Resulted Abscess Groin NO GROWTH IN 24 HOURS. 06/30/17 21:12 Fungal Smear - Final Resulted Abscess Groin NO FUNGAL ELEMENTS SEEN. 06/30/17 21:12 Fungal Culture Resulted Abscess Groin Pending 06/30/17 21:12 Acid Fast Stain Received Abscess Groin Pending 06/30/17 21:12 Mycobacterial Culture Received Abscess Groin Pending 06/30/17 18:00 Aerobic Blood Culture - Preliminary Resulted Blood Peripheral NO GROWTH IN 1 DAY 06/30/17 18:00 Anaerobic Blood Culture - Preliminary Resulted Blood Peripheral NO GROWTH IN 1 DAY Radiology Last Impressions Abdomen/Pelvis CT 06/30/17 3693 Signed Impressions: Service Date/Time: Friday, June 30, 2017 16:47 - CONCLUSION: 1. Right inguinal fluid collection with surrounding edema and induration in the subcutaneous fat and mild lymphadenopathy. The fluid collection may represent a necrotic and/or cystic lymph node/lymphocele or an abscess in the proper clinical setting. An abscess could also be developing medially of the upper thigh as well, with a small, mildly organized fluid collection in the deep subcutaneous fat along the superficial margin of the greater psoas muscle. Other than mild mass effect, the neurovascular structures are normal. 2. No acute abnormality seen within the pelvic cavity. Aaron Ibrahim MD Extremities: No edema Narrative Exam VAC in place right groin wound Clear drainage in VAC device A/P Assessment and Plan 26-year-old female with a wound in the right groin Continue with VAC dressing Kenny Bo MD Jul 01, 2017 14:59
[2017-07-01] MEDS: PIPERACIL-TAZO 3.375 GM PREMIX 50 ML IV SCH (19:35)
[2017-07-02] VITALS: BP 121/59; PULSE 88; RESP 14; TEMP 98.1; O2SAT 95
[2017-07-02] MEDS: PIPERACIL-TAZO 3.375 GM PREMIX 50 ML IV SCH ×4 (03:24→22:31)
[2017-07-02] MEDS: VANCOMYCIN INJ 750 MG in SODIUM CHLOR 0.9% 250 ML INJ 250 ML IV SCH ×3 (05:37→22:39)
[2017-07-02] MEDS ORDERED: PHARMACY ORDERED LAB ONE (05:45)
[2017-07-02 07:24] LABS: AUTOMATED NEUTROPHIL # 3.1 TH/MM3 (1.8-7.7); BASOPHIL # 0.1 TH/MM3 (0-0.2); BASOPHIL % 1.4 % (0.0-2.0); EOSINOPHIL # 0.3 TH/MM3 (0-0.4); EOSINOPHIL % 4.9 % (0.0-4.0); HEMO FLAGS DIFF FINAL; LYMPH % 30.8 % (9.0-44.0); LYMPHOCYTE # 1.8 TH/MM3 (1.0-4.8); MEAN CELL VOLUME 83.5 FL (80.0-100.0); MEAN CORPUSCULAR HEMOGLOBIN 28.8 PG (27.0-34.0); MEAN CORPUSCULAR HGB CONC 34.5 % (32.0-36.0); MONO % 10.2 % (0.0-8.0); NEUT % 52.7 % (16.0-70.0); PLATELET COUNT 155 TH/MM3 (150-450); RED BLOOD COUNT 3.72 MIL/MM3 (4.00-5.30); RED CELL DISTRIBUTION WIDTH 13.6 % (11.6-17.2); WHITE BLOOD COUNT 5.8 TH/MM3 (4.0-11.0)
[2017-07-02 07:43] LABS: BICARBONATE 25.9 MEQ/L (21.0-32.0); POTASSIUM 3.8 MEQ/L (3.5-5.1)
[2017-07-02 08:00] VITALS: BP 95/49; PULSE 64; RESP 17; TEMP 99.4; O2SAT 96
[2017-07-02] MEDS: REMOVE OLD PATCH T-DERMAL SCH (09:00)
[2017-07-02] MEDS: DOCUSATE SODIUM 50 MG/SENNA 8.6 MG TAB PO SCH ×2 (09:00→22:33)
[2017-07-02] MEDS: SODIUM CHLORIDE 0.9% FLUSH 10 ML FLUSH IV FLUSH SCH ×2 (09:13→22:33)
[2017-07-02] MEDS: NICOTINE 14 MG/24 HR PATCH T-DERMAL SCH (09:14)
[2017-07-02] MEDS: ONDANSETRON HCL 4 MG/2 ML VIAL IVP PRN (09:20)
--- NOTE | 2017-07-02 11:57 | HHI.PR ---
Subjective Remarks Follow up for right groin abscess s/p wound vac placement, I&D. Patient is currently doing well. Reports persistent pain. Had low grade fever as well. Tolerating diet well. Objective Vitals Vital Signs Date Time Temp Pulse Resp B/P Pulse Ox O2 Delivery O2 Flow Rate FiO2 07/02/17 08:00 99.4 64 17 95/49 96 07/02/17 05:07 18 07/02/17 00:00 98.1 88 14 121/59 95 07/01/17 21:51 97 07/01/17 20:00 97.8 85 18 99/56 97 07/01/17 16:00 97.0 75 17 113/68 99 07/01/17 12:00 97.3 90 17 99/70 98 I/O 07/01/17 07/01/17 07/01/17 07/02/17 07/02/17 07/02/17 06:59 14:59 22:59 06:59 14:59 22:59 Intake Total 671 ml 1112 ml 805 ml 690 ml Output Total 175 ml 25 ml 25 ml Balance 671 ml 937 ml 780 ml 665 ml Intake Oral 240 ml 480 ml 240 ml IV Total 671 ml 872 ml 325 ml 450 ml Emesis 175 ml Drainage Total 25 ml 25 ml # Voids 2 4 2 2 # Bowel Movements 1 Result Diagram: 07/02/17 0624 07/02/17 0624 Imaging Last Impressions Abdomen/Pelvis CT 06/30/17 1519 Signed Impressions: Service Date/Time: Friday, June 30, 2017 16:47 - CONCLUSION: 1. Right inguinal fluid collection with surrounding edema and induration in the subcutaneous fat and mild lymphadenopathy. The fluid collection may represent a necrotic and/or cystic lymph node/lymphocele or an abscess in the proper clinical setting. An abscess could also be developing medially of the upper thigh as well, with a small, mildly organized fluid collection in the deep subcutaneous fat along the superficial margin of the greater psoas muscle. Other than mild mass effect, the neurovascular structures are normal. 2. No acute abnormality seen within the pelvic cavity. Aaron Ibrahim MD Objective Remarks GENERAL: Alert, Oriented x, 3, NAD. SKIN: Warm and dry. HEAD: Normocephalic. EYES: No scleral icterus. No injection or drainage. NECK: Supple, trachea midline. No JVD or lymphadenopathy. CARDIOVASCULAR: Regular rate and rhythm without murmurs, gallops, or rubs. RESPIRATORY: Breath sounds equal bilaterally. No accessory muscle use. GASTROINTESTINAL: Abdomen soft, non-tender, nondistended. MUSCULOSKELETAL: No cyanosis, or edema. BACK: Nontender without obvious deformity. No CVA tenderness. Procedures 06/30/2017 incision and drainage of right groin lymphocele with vac A/P Problem List: (1) Groin abscess ICD Code: L02.214 Status: Acute (2) IVDU (intravenous drug user) ICD Code: F19.90 Status: Acute (3) Elevated LFTs ICD Code: R79.89 Status: Acute (4) Tobacco abuse ICD Code: Z72.0 Status: Acute Assessment and Plan This is a 26-year-old female presenting with groin abscess Groin Abscess: progressive redness/swelling to right groin x2 wks. Afebrile, mild leukocytosis. WBC 11.3. CT Abd/Pelvis w/ right inguinal fluid collection and surrounding edema/induration, likely necrotic lymph node or abscess, also w / developing abscess medial thigh. Gen Sx consulted, status post I&D 06/30/17, continue vancomycin and Zosyn, follow-up culture results. Continue pain control with oxycodone and intravenous morphine for breakthrough. - Wound vac in place - likely to be removed by surgery on 07/03/2017 - Culture is not growing any organisms. - We may consider switching to PO abx. IVDU: w/ Heroin/Meth. Ativan prn for withdrawal. Elevated LFTs: Stable in comparison to previous labs from 04/19/17, secondary to h/o Hepatitic C, improving, check in a few days. Tobacco Abuse: Pt counselled. NicoDerm prn if needed. DVT Prophylaxis: Mechanical contraindication secondary to LE wound. Pt ambulatory. Low risk. Rafael Zuniga DO Jul 02, 2017 11:57
[2017-07-02 12:00] VITALS: BP 88/52; PULSE 90; RESP 12; TEMP 100; O2SAT 99
[2017-07-02] MEDS: MORPHINE SULFATE 4 MG/ML INJ IV PUSH PRN ×3 (12:16→22:35)
[2017-07-02 16:00] VITALS: BP 90/54; PULSE 89; RESP 16; TEMP 99.4; O2SAT 98
--- NOTE | 2017-07-02 17:04 | HHI.PR ---
Subjective Subjective Notes Resting in bed Worried that she got Wound Vac wet No issues Objective Vitals/I&O Vital Signs Date Time Temp Pulse Resp B/P Pulse Ox O2 Delivery O2 Flow Rate FiO2 07/02/17 16:00 99.4 89 16 90/54 98 06/30/17 22:30 Room Air 06/30/17 22:15 2 Labs Laboratory Tests Test 07/02/17 07/02/17 05:39 06:24 Vancomycin Level Trough 21.9 White Blood Count 5.8 Red Blood Count 3.72 Hemoglobin 10.7 Hematocrit 31.0 Mean Corpuscular Volume 83.5 Mean Corpuscular Hemoglobin 28.8 Mean Corpuscular Hemoglobin 34.5 Concent Red Cell Distribution Width 13.6 Platelet Count 155 Mean Platelet Volume 8.0 Neutrophils (%) (Auto) 52.7 Lymphocytes (%) (Auto) 30.8 Monocytes (%) (Auto) 10.2 Eosinophils (%) (Auto) 4.9 Basophils (%) (Auto) 1.4 Neutrophils # (Auto) 3.1 Lymphocytes # (Auto) 1.8 Monocytes # (Auto) 0.6 Eosinophils # (Auto) 0.3 Basophils # (Auto) 0.1 CBC Comment DIFF FINAL Differential Comment Sodium Level 139 Potassium Level 3.8 Chloride Level 105 Carbon Dioxide Level 25.9 Anion Gap 8 Blood Urea Nitrogen 6 Creatinine 0.82 Estimat Glomerular Filtration 85 Rate Random Glucose 75 Calcium Level 7.9 Date/Time Procedure Status Source Growth 06/30/17 21:12 Gram Stain - Final Resulted Abscess Groin 06/30/17 21:12 Wound Culture - Preliminary Resulted Abscess Groin NO GROWTH IN 48 HOURS. 06/30/17 21:12 Fungal Smear - Final Resulted Abscess Groin NO FUNGAL ELEMENTS SEEN. 06/30/17 21:12 Fungal Culture Resulted Abscess Groin Pending 06/30/17 21:12 Acid Fast Stain Received Abscess Groin Pending 06/30/17 21:12 Mycobacterial Culture Received Abscess Groin Pending 06/30/17 18:00 Aerobic Blood Culture - Preliminary Resulted Blood Peripheral NO GROWTH IN 2 DAYS 06/30/17 18:00 Anaerobic Blood Culture - Preliminary Resulted Blood Peripheral NO GROWTH IN 2 DAYS Radiology Last Impressions Abdomen/Pelvis CT 06/30/17 3525 Signed Impressions: Service Date/Time: Friday, June 30, 2017 16:47 - CONCLUSION: 1. Right inguinal fluid collection with surrounding edema and induration in the subcutaneous fat and mild lymphadenopathy. The fluid collection may represent a necrotic and/or cystic lymph node/lymphocele or an abscess in the proper clinical setting. An abscess could also be developing medially of the upper thigh as well, with a small, mildly organized fluid collection in the deep subcutaneous fat along the superficial margin of the greater psoas muscle. Other than mild mass effect, the neurovascular structures are normal. 2. No acute abnormality seen within the pelvic cavity. Aaron Ibrahim MD Cardiovascular: Regular Lungs: Clear Abdomen: Non-distended, Non-tender Extremities: Perfused, Other (see below ) Narrative Exam RIGHT groin Wound Vac in place with good seal A/P Assessment and Plan 26 year old female s/p I&D of RIGHT groin wound and Wound Vac placement -Plan to remove Wound Vac at bedside tomorrow -Regular diet -Pain control Attending Statement patient seen and examined at bedside serosang fluid from vac will remove tomorrow Attestation The exam, history, and the medical decision-making described in the above note were completed with the assistance of the mid-level provider. I reviewed and agree with the findings presented. I attest that I had a [id number] encounter with the patient on the same day, and personally performed and documented my assessment and findings in the medical record. Dee Velázquez Jul 02, 2017 17:04 Livan Kwon MD Jul 05, 2017 21:18
[2017-07-02 20:00] VITALS: BP 93/45; PULSE 89; RESP 18; TEMP 98.9; O2SAT 98
[2017-07-02] MEDS: LORazepam 2 MG/ML VIAL IV PUSH PRN (22:34)
[2017-07-03] VITALS: BP 95/53; PULSE 88; RESP 18; TEMP 97.2; O2SAT 97
[2017-07-03] MEDS: PIPERACIL-TAZO 3.375 GM PREMIX 50 ML IV SCH ×4 (04:21→22:23)
[2017-07-03] MEDS: ONDANSETRON HCL 4 MG/2 ML VIAL IVP PRN (04:21)
[2017-07-03] MEDS: MORPHINE SULFATE 4 MG/ML INJ IV PUSH PRN ×2 (05:46→17:22)
[2017-07-03 08:00] VITALS: BP 91/45; PULSE 60; RESP 14; TEMP 98; O2SAT 95
[2017-07-03] MEDS: NICOTINE 14 MG/24 HR PATCH T-DERMAL SCH (08:18)
[2017-07-03] MEDS: DOCUSATE SODIUM 50 MG/SENNA 8.6 MG TAB PO SCH ×2 (08:18→22:22)
[2017-07-03] MEDS: REMOVE OLD PATCH T-DERMAL SCH (08:27)
[2017-07-03] MEDS: SODIUM CHLORIDE 0.9% FLUSH 10 ML FLUSH IV FLUSH SCH ×2 (08:27→22:22)
[2017-07-03 12:00] VITALS: BP 105/59; PULSE 89; RESP 16; TEMP 97.8; O2SAT 96
[2017-07-03] MEDS: VANCOMYCIN INJ 750 MG in SODIUM CHLOR 0.9% 250 ML INJ 250 ML IV SCH (12:05)
--- NOTE | 2017-07-03 15:43 | HHI.PR ---
Subjective Remarks Follow up for right groin abscess s/p wound vac placement, I&D. Patient is doing well. No fever, chills. Objective Vitals Vital Signs Date Time Temp Pulse Resp B/P Pulse Ox O2 Delivery O2 Flow Rate FiO2 07/03/17 12:00 97.8 89 16 105/59 96 07/03/17 08:00 98.0 60 14 91/45 95 07/03/17 00:00 97.2 88 18 95/53 97 07/02/17 20:00 98.9 89 18 93/45 98 07/02/17 16:00 99.4 89 16 90/54 98 I/O 07/02/17 07/02/17 07/02/17 07/03/17 07/03/17 07/03/17 07:00 15:00 23:00 07:00 15:00 23:00 Intake Total 690 ml 800 ml 360 ml 240 ml 800 ml Output Total 25 ml 50 ml 50 ml 600 ml Balance 665 ml 800 ml 310 ml 190 ml 200 ml Intake Oral 240 ml 800 ml 360 ml 240 ml 800 ml IV Total 450 ml Output Urine Total 0 ml 600 ml Drainage Total 25 ml 50 ml 50 ml # Voids 2 3 3 # Bowel Movements 0 0 Result Diagram: 07/02/17 0624 07/02/17 0624 Imaging Last Impressions Abdomen/Pelvis CT 06/30/17 1519 Signed Impressions: Service Date/Time: Friday, June 30, 2017 16:47 - CONCLUSION: 1. Right inguinal fluid collection with surrounding edema and induration in the subcutaneous fat and mild lymphadenopathy. The fluid collection may represent a necrotic and/or cystic lymph node/lymphocele or an abscess in the proper clinical setting. An abscess could also be developing medially of the upper thigh as well, with a small, mildly organized fluid collection in the deep subcutaneous fat along the superficial margin of the greater psoas muscle. Other than mild mass effect, the neurovascular structures are normal. 2. No acute abnormality seen within the pelvic cavity. Aaron Ibrahim MD Objective Remarks GENERAL: Alert, Oriented x, 3, NAD. SKIN: Warm and dry. HEAD: Normocephalic. EYES: No scleral icterus. No injection or drainage. NECK: Supple, trachea midline. No JVD or lymphadenopathy. CARDIOVASCULAR: Regular rate and rhythm without murmurs, gallops, or rubs. RESPIRATORY: Breath sounds equal bilaterally. No accessory muscle use. GASTROINTESTINAL: Abdomen soft, non-tender, nondistended. MUSCULOSKELETAL: No cyanosis, or edema. BACK: Nontender without obvious deformity. No CVA tenderness. Procedures 06/30/2017 incision and drainage of right groin lymphocele with vac A/P Problem List: (1) Groin abscess ICD Code: L02.214 Status: Acute (2) IVDU (intravenous drug user) ICD Code: F19.90 Status: Acute (3) Elevated LFTs ICD Code: R79.89 Status: Acute (4) Tobacco abuse ICD Code: Z72.0 Status: Acute Assessment and Plan This is a 26-year-old female presenting with groin abscess Groin Abscess: progressive redness/swelling to right groin x2 wks. Afebrile, mild leukocytosis. WBC 11.3. CT Abd/Pelvis w/ right inguinal fluid collection and surrounding edema/induration, likely necrotic lymph node or abscess, also w / developing abscess medial thigh. Gen Sx consulted, status post I&D 06/30/17, continue vancomycin and Zosyn, follow-up culture results. Continue pain control with oxycodone and intravenous morphine for breakthrough. - Wound vac changed on 07/03/2017 - Culture is not growing any organisms. - D/C Vanc, Zosyn. Start Clindamycin 300mg Q6hrs for 5 days. Start Lactinex as well. IVDU: w/ Heroin/Meth. Ativan prn for withdrawal. Tobacco Abuse: Pt counselled. NicoDerm prn if needed. DVT Prophylaxis: Mechanical contraindication secondary to LE wound. Pt ambulatory. Low risk. Rafael Zuniga DO Jul 03, 2017 15:43
[2017-07-03 16:00] VITALS: BP 90/50; PULSE 64; RESP 14; TEMP 97.3; O2SAT 97
--- NOTE | 2017-07-03 17:35 | HHI.PR ---
Subjective Subjective Notes Resting in bed Objective Vitals/I&O Vital Signs Date Time Temp Pulse Resp B/P Pulse Ox O2 Delivery O2 Flow Rate FiO2 07/03/17 16:00 97.3 64 14 90/50 97 06/30/17 22:30 Room Air 06/30/17 22:15 2 Labs Date/Time Procedure Status Source Growth 06/30/17 21:12 Gram Stain - Final Complete Abscess Groin 06/30/17 21:12 Wound Culture - Final Complete Abscess Groin NO GROWTH IN 72 HRS.--AEROBICALLY OR ... 06/30/17 21:12 Fungal Smear - Final Resulted Abscess Groin NO FUNGAL ELEMENTS SEEN. 06/30/17 21:12 Fungal Culture Resulted Abscess Groin Pending 06/30/17 21:12 Acid Fast Stain - Final Resulted Abscess Groin NO ACID FAST BACILLI SEEN 06/30/17 21:12 Mycobacterial Culture Resulted Abscess Groin Pending 06/30/17 18:00 Aerobic Blood Culture - Preliminary Resulted Blood Peripheral NO GROWTH IN 3 DAYS 06/30/17 18:00 Anaerobic Blood Culture - Preliminary Resulted Blood Peripheral NO GROWTH IN 3 DAYS Radiology Last Impressions Abdomen/Pelvis CT 06/30/17 1519 Signed Impressions: Service Date/Time: Friday, June 30, 2017 16:47 - CONCLUSION: 1. Right inguinal fluid collection with surrounding edema and induration in the subcutaneous fat and mild lymphadenopathy. The fluid collection may represent a necrotic and/or cystic lymph node/lymphocele or an abscess in the proper clinical setting. An abscess could also be developing medially of the upper thigh as well, with a small, mildly organized fluid collection in the deep subcutaneous fat along the superficial margin of the greater psoas muscle. Other than mild mass effect, the neurovascular structures are normal. 2. No acute abnormality seen within the pelvic cavity. Aaron Ibrahim MD Cardiovascular: Regular Lungs: Clear Abdomen: Non-distended, Non-tender Extremities: Other (see below ) Narrative Exam RIGHT groin Wound Vac in place with good seal A/P Assessment and Plan 26 year old female s/p I&D of RIGHT groin wound and Wound Vac placement -Wound Vac changed at bedside today -Transition to wet to dry dressing -Regular diet -Pain control Attending Statement patient seen and examined at bedside transition to wet to dry, remove vac Attestation The exam, history, and the medical decision-making described in the above note were completed with the assistance of the mid-level provider. I reviewed and agree with the findings presented. I attest that I had a [id number] encounter with the patient on the same day, and personally performed and documented my assessment and findings in the medical record. Dee Velázquez Jul 03, 2017 17:35 Livan Kwon MD Jul 05, 2017 21:27
[2017-07-03] MEDS ORDERED: HYDROmorphone HCL PF 1 MG/ML VIAL IV PUSH PRN (17:45)
[2017-07-03 20:00] VITALS: BP 90/58; PULSE 74; RESP 18; TEMP 98.2; O2SAT 97
[2017-07-03] MEDS ORDERED: PHARMACY ORDERED LAB ONE (23:45)
[2017-07-04] MEDS: CLINDAMYCIN 150 MG CAP PO SCH ×5 (00:21→23:07)
[2017-07-04] MEDS: LORazepam 2 MG/ML VIAL IV PUSH PRN (00:31)
[2017-07-04 08:00] VITALS: BP 80/46; PULSE 82; RESP 16; TEMP 98; O2SAT 97
[2017-07-04] MEDS: DOCUSATE SODIUM 50 MG/SENNA 8.6 MG TAB PO SCH ×2 (08:20→20:20)
[2017-07-04] MEDS: REMOVE OLD PATCH T-DERMAL SCH (08:20)
[2017-07-04] MEDS: NICOTINE 14 MG/24 HR PATCH T-DERMAL SCH (08:20)
[2017-07-04] MEDS: LACTOBACILLUS ACIDOPHILUS TAB PO SCH ×3 (08:20→16:55)
[2017-07-04] MEDS: SODIUM CHLORIDE 0.9% FLUSH 10 ML FLUSH IV FLUSH SCH ×2 (08:21→20:24)
--- NOTE | 2017-07-04 09:21 | HHI.PR ---
Subjective Remarks Follow up for right groin abscess. Wound vac discontinued on 07/03/2017. Patient is sleepy, denies any fever, chills. However, she reports waking up sweating. She inquires about pain medications on discharge. Objective Vitals Vital Signs Date Time Temp Pulse Resp B/P Pulse Ox O2 Delivery O2 Flow Rate FiO2 07/03/17 20:00 98.2 74 18 90/58 97 07/03/17 16:00 97.3 64 14 90/50 97 07/03/17 12:00 97.8 89 16 105/59 96 07/03/17 09:30 18 I/O 07/03/17 07/03/17 07/03/17 07/04/17 07/04/17 07/04/17 06:59 14:59 22:59 06:59 14:59 22:59 Intake Total 240 ml 800 ml 360 ml 240 ml Output Total 50 ml 600 ml Balance 190 ml 200 ml 360 ml 240 ml Intake Oral 240 ml 800 ml 360 ml 240 ml Output Urine Total 0 ml 600 ml Drainage Total 50 ml # Voids 3 2 # Bowel Movements 0 Result Diagram: 07/02/17 0624 07/04/17 0619 Imaging Last Impressions Abdomen/Pelvis CT 06/30/17 1519 Signed Impressions: Service Date/Time: Friday, June 30, 2017 16:47 - CONCLUSION: 1. Right inguinal fluid collection with surrounding edema and induration in the subcutaneous fat and mild lymphadenopathy. The fluid collection may represent a necrotic and/or cystic lymph node/lymphocele or an abscess in the proper clinical setting. An abscess could also be developing medially of the upper thigh as well, with a small, mildly organized fluid collection in the deep subcutaneous fat along the superficial margin of the greater psoas muscle. Other than mild mass effect, the neurovascular structures are normal. 2. No acute abnormality seen within the pelvic cavity. Aaron Ibrahim MD Objective Remarks GENERAL: Alert, Oriented x, 3, NAD. SKIN: Warm and dry. HEAD: Normocephalic. EYES: No scleral icterus. No injection or drainage. NECK: Supple, trachea midline. No JVD or lymphadenopathy. CARDIOVASCULAR: Regular rate and rhythm without murmurs, gallops, or rubs. RESPIRATORY: Breath sounds equal bilaterally. No accessory muscle use. GASTROINTESTINAL: Abdomen soft, non-tender, nondistended. MUSCULOSKELETAL: No cyanosis, or edema. Right upper thigh wound vac discontinued. BACK: Nontender without obvious deformity. No CVA tenderness. Procedures 06/30/2017 incision and drainage of right groin lymphocele with vac A/P Problem List: (1) Groin abscess ICD Code: L02.214 Status: Acute (2) IVDU (intravenous drug user) ICD Code: F19.90 Status: Acute (3) Elevated LFTs ICD Code: R79.89 Status: Acute (4) Tobacco abuse ICD Code: Z72.0 Status: Acute Assessment and Plan This is a 26-year-old female presenting with groin abscess Groin Abscess: progressive redness/swelling to right groin x2 wks. Afebrile, mild leukocytosis. WBC 11.3. CT Abd/Pelvis w/ right inguinal fluid collection and surrounding edema/induration, likely necrotic lymph node or abscess, also w / developing abscess medial thigh. Gen Sx consulted, status post I&D 06/30/17, continue vancomycin and Zosyn, follow-up culture results. Continue pain control with oxycodone and intravenous morphine for breakthrough. - Wound vac discontinued on 07/03/2017 - Culture is not growing any organisms. - Continue Clindamycin 300mg Q6hrs for 5 days. Continue Lactinex as well. - Per surgery, wet to dry dressing, change daily. - Regular diet. Hypotension - Discussed with RN. Patient's blood pressure 88/74. Asymptomatic. - Patient appears to be comfortable. Caution with pain meds - Repeat BP shows persistent low BP. We will initiate NS bolus. Discussed with RN. - IF systolic BP < 90, continue NS bolus. IVDU: w/ Heroin/Meth. Ativan prn for withdrawal. Tobacco Abuse: Pt counselled. NicoDerm prn if needed. DVT Prophylaxis: Mechanical contraindication secondary to LE wound. Pt ambulatory. Low risk. Rafael Zuniga DO Jul 04, 2017 09:21
--- NOTE | 2017-07-04 09:50 | HHI.FF ---
Face to Face Verification Diagnosis: (1) Groin abscess Home Health Nursing Order: Wound care and dressing changes Instructions: Saline soaked 2x2 loosely packed into RIGHT groin wound; cover with dry 4x4; secure with paper tape; change daily; okay to shower inbetween dressing changes I have seen patient Soo Rajput on 07/04/17. My clinical findings support the need for the requested home health care services because: Limited ability to care for self High risk of falls I certify that my clinical findings support that this patient is homebound because: Unsteady gait/balance Dee Velázquez [facility] Jul 04, 2017 09:50
[2017-07-04] MEDS ORDERED: SODIUM CHLOR 0.9% 1000 ML INJ 1,000 ML IV ONE (10:45)
[2017-07-04 12:00] VITALS: BP 96/60; PULSE 93; RESP 17; TEMP 98.3; O2SAT 97
[2017-07-04] MEDS ORDERED: MIDAZOLAM HCL 2 MG/2 ML VIAL ONE (12:18)
[2017-07-04 16:00] VITALS: BP 94/46; PULSE 80; RESP 16; TEMP 99.3; O2SAT 97
[2017-07-04] MEDS: ONDANSETRON HCL 4 MG/2 ML VIAL IVP PRN (16:55)
--- NOTE | 2017-07-04 18:03 | HHI.PR ---
Subjective Subjective Notes Resting in bed States pain medications not helping Objective Vitals/I&O Vital Signs Date Time Temp Pulse Resp B/P Pulse Ox O2 Delivery O2 Flow Rate FiO2 07/04/17 16:00 99.3 80 16 94/46 97 06/30/17 22:30 Room Air 06/30/17 22:15 2 Labs Laboratory Tests Test 07/04/17 06:19 Creatinine 0.96 Estimat Glomerular Filtration 71 Rate Date/Time Procedure Status Source Growth 06/30/17 21:12 Gram Stain - Final Complete Abscess Groin 06/30/17 21:12 Wound Culture - Final Complete Abscess Groin NO GROWTH IN 72 HRS.--AEROBICALLY OR ... 06/30/17 21:12 Fungal Smear - Final Resulted Abscess Groin NO FUNGAL ELEMENTS SEEN. 06/30/17 21:12 Fungal Culture Resulted Abscess Groin Pending 06/30/17 21:12 Acid Fast Stain - Final Resulted Abscess Groin NO ACID FAST BACILLI SEEN 06/30/17 21:12 Mycobacterial Culture Resulted Abscess Groin Pending 06/30/17 18:00 Aerobic Blood Culture - Preliminary Resulted Blood Peripheral NO GROWTH IN 4 DAYS 06/30/17 18:00 Anaerobic Blood Culture - Preliminary Resulted Blood Peripheral NO GROWTH IN 4 DAYS Radiology Last Impressions Abdomen/Pelvis CT 06/30/17 8129 Signed Impressions: Service Date/Time: Friday, June 30, 2017 16:47 - CONCLUSION: 1. Right inguinal fluid collection with surrounding edema and induration in the subcutaneous fat and mild lymphadenopathy. The fluid collection may represent a necrotic and/or cystic lymph node/lymphocele or an abscess in the proper clinical setting. An abscess could also be developing medially of the upper thigh as well, with a small, mildly organized fluid collection in the deep subcutaneous fat along the superficial margin of the greater psoas muscle. Other than mild mass effect, the neurovascular structures are normal. 2. No acute abnormality seen within the pelvic cavity. Aaron Ibrahim MD Cardiovascular: Regular Lungs: Clear Abdomen: Non-distended, Non-tender Extremities: Other (see below ) Narrative Exam RIGHT groin dressing c/d/i A/P Assessment and Plan 26 year old female s/p I&D of RIGHT groin wound and Wound Vac placement -Transition to wet to dry dressing; change daily -Regular diet -Pain control ---increase dose of Roxicodone -Scop patch Attending Statement patient seen at bedside still with pain and nausea adjust meds Attestation The exam, history, and the medical decision-making described in the above note were completed with the assistance of the mid-level provider. I reviewed and agree with the findings presented. I attest that I had a [id number] encounter with the patient on the same day, and personally performed and documented my assessment and findings in the medical record. Dee Velázquez Jul 04, 2017 18:02 Livan Kwon MD Jul 08, 2017 16:07
[2017-07-04] MEDS ORDERED: SCOPOLAMINE 1.5 MG PATCH T-DERMAL SCH (20:00)
[2017-07-04 20:02] VITALS: BP 95/54; PULSE 70; RESP 16; TEMP 99.6; O2SAT 94
[2017-07-05 00:05] VITALS: BP 99/72; PULSE 96; RESP 17; TEMP 99; O2SAT 97
[2017-07-05] MEDS: LORazepam 2 MG/ML VIAL IV PUSH PRN (01:51)
[2017-07-05 06:09] LABS: AUTOMATED NEUTROPHIL # 2.8 TH/MM3 (1.8-7.7); BASOPHIL % 0.6 % (0.0-2.0); EOSINOPHIL # 0.2 TH/MM3 (0-0.4); EOSINOPHIL % 3.8 % (0.0-4.0); HEMATOCRIT 32.2 % (35.0-46.0); HEMO FLAGS DIFF FINAL; LYMPH % 39.7 % (9.0-44.0); LYMPHOCYTE # 2.5 TH/MM3 (1.0-4.8); MEAN CORPUSCULAR HEMOGLOBIN 28.9 PG (27.0-34.0); MEAN CORPUSCULAR HGB CONC 34.9 % (32.0-36.0); NEUT % 44.9 % (16.0-70.0); PLATELET COUNT 187 TH/MM3 (150-450); RED BLOOD COUNT 3.88 MIL/MM3 (4.00-5.30); RED CELL DISTRIBUTION WIDTH 13.1 % (11.6-17.2); WHITE BLOOD COUNT 6.2 TH/MM3 (4.0-11.0)
[2017-07-05] MEDS: CLINDAMYCIN 150 MG CAP PO SCH ×4 (06:13→23:17)
[2017-07-05 06:36] LABS: ALT (GPT) 95 U/L (10-53); ANION GAP 4 MEQ/L (5-15); AST (GOT) 50 U/L (15-37); BICARBONATE 31.9 MEQ/L (21.0-32.0); BLOOD UREA NITROGEN 5 MG/DL (7-18); CHLORIDE 103 MEQ/L (98-107); GLOMERULAR FILTRATION RATE 77 ML/MIN (>89); POTASSIUM 3.7 MEQ/L (3.5-5.1); SODIUM (NA) 139 MEQ/L (136-145)
[2017-07-05 06:39] LABS: ALKALINE PHOSPHATASE 51 U/L (45-117); TOTAL BILIRUBIN ADULT 0.4 MG/DL (0.2-1.0)
[2017-07-05 08:00] VITALS: BP 94/56; PULSE 73; RESP 17; TEMP 98.1; O2SAT 97
--- NOTE | 2017-07-05 08:56 | HHI.PR ---
Subjective Remarks Follow up for right groin abscess. Patient is currently doing well. Denies any fever or chills. Ambulating in the room. We were planning to discharge patient home today. However her blood pressure was noted to be 80/40 this morning. Discussed with RN, patient is asymptomatic. Objective Vitals Vital Signs Date Time Temp Pulse Resp B/P Pulse Ox O2 Delivery O2 Flow Rate FiO2 07/05/17 08:00 98.1 73 17 94/56 97 07/05/17 00:05 99.0 96 17 99/72 97 07/04/17 20:02 99.6 70 16 95/54 94 07/04/17 16:00 99.3 80 16 94/46 97 07/04/17 12:00 98.3 93 17 96/60 97 I/O 07/04/17 07/04/17 07/04/17 07/05/17 07/05/17 07/05/17 06:59 14:59 22:59 06:59 14:59 22:59 Intake Total 240 ml 1480 ml 480 ml 480 ml Balance 240 ml 1480 ml 480 ml 480 ml Intake Oral 240 ml 480 ml 480 ml 480 ml Other 1000 ml # Voids 2 3 2 2 # Bowel Movements 0 Result Diagram: 07/05/17 0529 07/05/17 0529 Imaging Last Impressions Abdomen/Pelvis CT 06/30/17 1519 Signed Impressions: Service Date/Time: Friday, June 30, 2017 16:47 - CONCLUSION: 1. Right inguinal fluid collection with surrounding edema and induration in the subcutaneous fat and mild lymphadenopathy. The fluid collection may represent a necrotic and/or cystic lymph node/lymphocele or an abscess in the proper clinical setting. An abscess could also be developing medially of the upper thigh as well, with a small, mildly organized fluid collection in the deep subcutaneous fat along the superficial margin of the greater psoas muscle. Other than mild mass effect, the neurovascular structures are normal. 2. No acute abnormality seen within the pelvic cavity. Aaron Ibrahim MD Objective Remarks GENERAL: Alert, Oriented x, 3, NAD. SKIN: Warm and dry. HEAD: Normocephalic. EYES: No scleral icterus. No injection or drainage. NECK: Supple, trachea midline. No JVD or lymphadenopathy. CARDIOVASCULAR: Regular rate and rhythm without murmurs, gallops, or rubs. RESPIRATORY: Breath sounds equal bilaterally. No accessory muscle use. GASTROINTESTINAL: Abdomen soft, non-tender, nondistended. MUSCULOSKELETAL: No cyanosis, or edema. Right upper thigh wound vac discontinued. Wound area healing well, no surrounding erythema, drainage. There is mild induration. BACK: Nontender without obvious deformity. No CVA tenderness. Procedures 06/30/2017 incision and drainage of right groin lymphocele with vac A/P Problem List: (1) Groin abscess ICD Code: L02.214 Status: Acute (2) IVDU (intravenous drug user) ICD Code: F19.90 Status: Acute (3) Elevated LFTs ICD Code: R79.89 Status: Acute (4) Tobacco abuse ICD Code: Z72.0 Status: Acute Assessment and Plan This is a 26-year-old female presenting with groin abscess Groin Abscess: progressive redness/swelling to right groin x2 wks. Afebrile, mild leukocytosis. WBC 11.3. CT Abd/Pelvis w/ right inguinal fluid collection and surrounding edema/induration, likely necrotic lymph node or abscess, also w / developing abscess medial thigh. Gen Sx consulted, status post I&D 06/30/17, continue vancomycin and Zosyn, follow-up culture results. Continue pain control with oxycodone and intravenous morphine for breakthrough. - Wound vac discontinued on 07/03/2017 - Culture is not growing any organisms. - Continue Clindamycin 300mg Q6hrs for 5 days. Continue Lactinex as well. - Per surgery, wet to dry dressing, change daily. - Regular diet. Hypotension - BP was 80/40 per RN. - Will start IV fluid bolus. Also, obtain CBC, CMP, Lactic acid, Procalcitonin, CXR and UA. IVDU: w/ Heroin/Meth. Ativan prn for withdrawal. Tobacco Abuse: Pt counselled. NicoDerm prn if needed. DVT Prophylaxis: Mechanical contraindication secondary to LE wound. Pt ambulatory. Low risk. Rafael Zuniga DO Jul 05, 2017 8:56 am
[2017-07-05] MEDS: REMOVE OLD PATCH T-DERMAL SCH (09:00)
[2017-07-05] MEDS: DOCUSATE SODIUM 50 MG/SENNA 8.6 MG TAB PO SCH ×2 (09:35→20:51)
[2017-07-05] MEDS: NICOTINE 14 MG/24 HR PATCH T-DERMAL SCH (09:35)
[2017-07-05] MEDS: SODIUM CHLORIDE 0.9% FLUSH 10 ML FLUSH IV FLUSH SCH ×2 (09:35→20:51)
[2017-07-05] MEDS: LACTOBACILLUS ACIDOPHILUS TAB PO SCH ×3 (09:35→16:51)
[2017-07-05] MEDS ORDERED: LACT PO (10:20)
[2017-07-05] MEDS ORDERED: TRAM50TA PO (10:20)
[2017-07-05] MEDS ORDERED: CLIN150 PO (10:20)
[2017-07-05] MEDS ORDERED: ZOFR4TAB3 SL (10:20)
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
[2017-07-05] MEDS: ONDANSETRON HCL 4 MG/2 ML VIAL IVP PRN (11:41)
[2017-07-05 12:00] VITALS: BP 80/48; PULSE 69; RESP 16; TEMP 98.1; O2SAT 97
[2017-07-05] MEDS ORDERED: SODIUM CHLOR 0.9% 1000 ML INJ 1,000 ML IV ONE (12:00)
--- NOTE | 2017-07-05 12:54 | RADRPT ---
EXAM DATE/TIME: 07/05/2017 12:41 [place] COMPARISON: CHEST PA & LAT, April 19, 2017, 20:31. INDICATIONS : Cough. MEDICAL HISTORY : Hepatitis C. SURGICAL HISTORY : None. ENCOUNTER: Initial ACUITY: 2 days PAIN SCORE: 0/10 LOCATION: Bilateral chest FINDINGS: A single view of the chest demonstrates the lungs to be symmetrically aerated without evidence of mas s, infiltrate or effusion. The cardiomediastinal contours are unremarkable. Osseous structures are intact. CONCLUSION: No acute disease. Aaron Cr MD on July 05, 2017 at 12:52 Board Certified Radiologist. This report was verified electronically.
[2017-07-05 14:05] LABS: BLOOD, URINE NEG (NEG); GLUCOSE,URINE NEG (NEG); KETONE, URINE NEG (NEG); NITRITE,URINE NEG (NEG); PH, URINE 7.5 (5.0-8.5); SQUAMOUS EPITHELIAL CELL URINE 7 /hpf (0-5); URINE COLOR LIGHT-YELLOW (YELLW/STRAW)
[2017-07-05 14:09] LABS: BACTERIA, URINE RARE /hpf; COMMENT (UR) CULT NOT INDICATED; CULTURE IF INDICATED CULT NOT INDICATED
[2017-07-05 14:23] LABS: AUTOMATED NEUTROPHIL # 2.6 TH/MM3 (1.8-7.7); BASOPHIL % 0.8 % (0.0-2.0); EOSINOPHIL # 0.2 TH/MM3 (0-0.4); EOSINOPHIL % 3.6 % (0.0-4.0); HEMATOCRIT 32.1 % (35.0-46.0); HEMO FLAGS DIFF FINAL; LYMPH % 36.1 % (9.0-44.0); MEAN CELL VOLUME 82.6 FL (80.0-100.0); MEAN CORPUSCULAR HEMOGLOBIN 28.6 PG (27.0-34.0); MEAN CORPUSCULAR HGB CONC 34.6 % (32.0-36.0); MONO % 11.6 % (0.0-8.0); NEUT % 47.9 % (16.0-70.0); PLATELET COUNT 166 TH/MM3 (150-450); RED BLOOD COUNT 3.88 MIL/MM3 (4.00-5.30); RED CELL DISTRIBUTION WIDTH 13.3 % (11.6-17.2); WHITE BLOOD COUNT 5.4 TH/MM3 (4.0-11.0)
[2017-07-05 14:43] LABS: ANION GAP 7 MEQ/L (5-15); AST (GOT) 54 U/L (15-37); BICARBONATE 28.1 MEQ/L (21.0-32.0); BLOOD UREA NITROGEN 4 MG/DL (7-18); CHLORIDE 102 MEQ/L (98-107); GLOMERULAR FILTRATION RATE 96 ML/MIN (>89); POTASSIUM 3.7 MEQ/L (3.5-5.1); SODIUM (NA) 137 MEQ/L (136-145)
[2017-07-05 14:44] LABS: ALT (GPT) 94 U/L (10-53)
[2017-07-05 14:46] LABS: ALKALINE PHOSPHATASE 50 U/L (45-117); TOTAL BILIRUBIN ADULT 0.4 MG/DL (0.2-1.0)
[2017-07-05 16:00] VITALS: BP 86/52; PULSE 78; RESP 16; TEMP 98.5; O2SAT 98
--- NOTE | 2017-07-05 16:44 | HHI.PR ---
Subjective Subjective Notes Resting in bed Reports dizziness when getting up Objective Vitals/I&O Vital Signs Date Time Temp Pulse Resp B/P Pulse Ox O2 Delivery O2 Flow Rate FiO2 07/05/17 16:00 98.5 78 16 86/52 98 Labs Laboratory Tests Test 07/05/17 07/05/17 07/05/17 05:29 13:50 14:06 White Blood Count 6.2 5.4 Red Blood Count 3.88 3.88 Hemoglobin 11.2 11.1 Hematocrit 32.2 32.1 Mean Corpuscular Volume 83.0 82.6 Mean Corpuscular Hemoglobin 28.9 28.6 Mean Corpuscular Hemoglobin 34.9 34.6 Concent Red Cell Distribution Width 13.1 13.3 Platelet Count 187 166 Mean Platelet Volume 7.8 7.4 Neutrophils (%) (Auto) 44.9 47.9 Lymphocytes (%) (Auto) 39.7 36.1 Monocytes (%) (Auto) 11.0 11.6 Eosinophils (%) (Auto) 3.8 3.6 Basophils (%) (Auto) 0.6 0.8 Neutrophils # (Auto) 2.8 2.6 Lymphocytes # (Auto) 2.5 2.0 Monocytes # (Auto) 0.7 0.6 Eosinophils # (Auto) 0.2 0.2 Basophils # (Auto) 0.0 0.0 CBC Comment DIFF FINAL DIFF FINAL Differential Comment Sodium Level 139 137 Potassium Level 3.7 3.7 Chloride Level 103 102 Carbon Dioxide Level 31.9 28.1 Anion Gap 4 7 Blood Urea Nitrogen 5 4 Creatinine 0.89 0.74 Estimat Glomerular Filtration 77 96 Rate Random Glucose 66 82 Calcium Level 8.1 8.6 Total Bilirubin 0.4 0.4 Aspartate Amino Transf 50 54 (AST/SGOT) Alanine Aminotransferase 95 94 (ALT/SGPT) Alkaline Phosphatase 51 50 Total Protein 6.2 6.3 Albumin 2.9 3.0 Urine Color LIGHT-YELLOW Urine Turbidity HAZY Urine pH 7.5 Urine Specific [place] 1.006 Urine Protein NEG Urine Glucose (UA) NEG Urine Ketones NEG Urine Occult Blood NEG Urine Nitrite NEG Urine Bilirubin NEG Urine Urobilinogen LESS THAN 2.0 Urine Leukocyte Esterase TRACE Urine RBC LESS THAN 1 Urine WBC 2 Urine Squamous Epithelial 7 Cells Urine Bacteria RARE Microscopic Urinalysis Comment CULT NOT INDICATED Lactic Acid Level 0.9 Procalcitonin LESS THAN 0.05 Date/Time Procedure Status Source Growth 06/30/17 21:12 Gram Stain - Final Complete Abscess Groin 06/30/17 21:12 Wound Culture - Final Complete Abscess Groin NO GROWTH IN 72 HRS.--AEROBICALLY OR ... 06/30/17 21:12 Fungal Smear - Final Resulted Abscess Groin NO FUNGAL ELEMENTS SEEN. 06/30/17 21:12 Fungal Culture Resulted Abscess Groin Pending 06/30/17 21:12 Acid Fast Stain - Final Resulted Abscess Groin NO ACID FAST BACILLI SEEN 06/30/17 21:12 Mycobacterial Culture Resulted Abscess Groin Pending 06/30/17 18:00 Aerobic Blood Culture - Final Complete Blood Peripheral NO GROWTH IN 5 DAYS 06/30/17 18:00 Anaerobic Blood Culture - Final Complete Blood Peripheral NO GROWTH IN 5 DAYS Radiology Last Impressions Abdomen/Pelvis CT 06/30/17 1519 Signed Impressions: Service Date/Time: Friday, June 30, 2017 16:47 - CONCLUSION: 1. Right inguinal fluid collection with surrounding edema and induration in the subcutaneous fat and mild lymphadenopathy. The fluid collection may represent a necrotic and/or cystic lymph node/lymphocele or an abscess in the proper clinical setting. An abscess could also be developing medially of the upper thigh as well, with a small, mildly organized fluid collection in the deep subcutaneous fat along the superficial margin of the greater psoas muscle. Other than mild mass effect, the neurovascular structures are normal. 2. No acute abnormality seen within the pelvic cavity. Aaron Ibrahim MD Cardiovascular: Regular Lungs: Clear Abdomen: Non-distended, Non-tender Extremities: No edema Narrative Exam RIGHT groin dressing c/d/i A/P Assessment and Plan 26 year old female s/p I&D of RIGHT groin wound and Wound Vac placement -Transition to wet to dry dressing; change daily -Regular diet -Pain control -Scop patch -GS clear for DC Attending Statement Patient seen at bedside transition to we to dry d/c planning Attestation The exam, history, and the medical decision-making described in the above note were completed with the assistance of the mid-level provider. I reviewed and agree with the findings presented. I attest that I had a [id number] encounter with the patient on the same day, and personally performed and documented my assessment and findings in the medical record. Dee Velázquez 10, 2017 16:44 Livan Kwon MD Jul 08, 2017 22:27
[2017-07-05] MEDS: SODIUM CHLOR 0.9% 1000 ML INJ 1,000 ML IV SCH ×2 (17:00→23:18)
[2017-07-05] MEDS ORDERED: HYDROmorphone HCL PF 1 MG/ML VIAL IV PUSH PRN (17:45)
[2017-07-05 20:00] VITALS: BP 81/45; PULSE 58; RESP 16; TEMP 98.1; O2SAT 96
[2017-07-06] VITALS: BP 100/51; PULSE 67; RESP 16; TEMP 98.3; O2SAT 99
[2017-07-06 01:50] VITALS: BP 86/41; PULSE 63; RESP 16; TEMP 98.6; O2SAT 98
[2017-07-06] MEDS: SODIUM CHLOR 0.9% 1000 ML INJ 1,000 ML IV SCH (04:55)
[2017-07-06] MEDS: CLINDAMYCIN 150 MG CAP PO SCH (04:55)
[2017-07-06 08:00] VITALS: BP 98/60; PULSE 59; RESP 16; TEMP 97.5; O2SAT 97
[2017-07-06] MEDS: REMOVE OLD PATCH T-DERMAL SCH (09:00)
[2017-07-06] MEDS: SODIUM CHLORIDE 0.9% FLUSH 10 ML FLUSH IV FLUSH SCH (09:00)
[2017-07-06] MEDS: DOCUSATE SODIUM 50 MG/SENNA 8.6 MG TAB PO SCH (09:12)
[2017-07-06] MEDS: NICOTINE 14 MG/24 HR PATCH T-DERMAL SCH (09:12)
[2017-07-06] MEDS: LACTOBACILLUS ACIDOPHILUS TAB PO SCH (09:12)
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
== END 2017-07-06 12:14 | disposition home or self-care (01) | DRG 803 ==
LOC: NEPD 13:26 → NEDA 18:49 → N07B 20:35
PROVIDERS: ADMIT Hospitalist; ATTEND Hospitalist
PROC: 2W16X6Z Compression of Right Inguinal Region using Pressure Dressing (ICD-10-PCS; 2017-06-30)
PROC: 079 Lymphatic and Hemic Systems, Drainage (ICD-10-PCS; principal; 2017-06-30 21:22)
DX: I89.8 Other specified noninfective disorders of lymphatic vessels and lymph nodes (principal); L02.214 Cutaneous abscess of groin; I95.9 Hypotension, unspecified; F15.10 Other stimulant abuse, uncomplicated; F17.210 Nicotine dependence, cigarettes, uncomplicated; R79.89 Other specified abnormal findings of blood chemistry; B19.20 Unspecified viral hepatitis C without hepatic coma; R42 Dizziness and giddiness
CPT/HCPCS: 71010; 74177; 80048; 80053; 80202; 81001; 82565; 83605; 84145; 84703; 85025; 85610; 85730; 87015; 87040; 87070; 87102; 87116; 87205; 87206; 96361; 96365; 96372; 96375; E0113; J0692; J1170; J1885; J2060; J2250; J2270; J2405; J2543; J3010; J3370; J7030; J7050; Q9967

== ENCOUNTER 2017-08-23 11:48 | Emergency (ER) | payer SELFPAY ==
[~2017-08-23] VITALS: Ht 149.9 cm
[~2017-08-23 11:48] MED LIST changes: +CLIN150 PO; +LACT PO; -PROPOFOL 200 MG/20 ML AMP IV ONE; +TRAM50TA PO; +ZOFR4TAB3 SL; -fentaNYL CITRATE 250 MCG/5 ML AMP IV ONE
[2017-08-23 11:49] VITALS: BP 104/67; PULSE 84; RESP 20; TEMP 98.5; O2SAT 99
[2017-08-24] MEDS ORDERED: TRAM50TA PO (04:26)
[2017-08-24] MEDS ORDERED: BACT800T5 PO (04:26)
== END 2017-08-23 14:37 | disposition left against medical advice (07) ==
LOC: NED 11:48
DX: Z53.21 Procedure and treatment not carried out due to patient leaving prior to being seen by health care provider (principal)
CPT/HCPCS: 84703; 99281

== ENCOUNTER 2017-08-24 03:55 | Emergency (ER) | payer SELFPAY ==
[~2017-08-24] VITALS: Ht 157.5 cm; Wt 50.0 kg
[2017-08-24 03:57] VITALS: BP 95/53; PULSE 75; RESP 18; TEMP 99; O2SAT 99
[2017-08-24] MEDS ORDERED: BACT800T5 PO (04:26)
[2017-08-24] MEDS ORDERED: TRAM50TA PO (04:26)
--- NOTE | 2017-08-24 04:26 | PD ---
HPI Chief Complaint: GI Complaint Time Seen by Provider: 04:08 Travel History International Travel<30 days: No Contact w/Intl Traveler<30days: No Traveled to known affect area: No History of Present Illness HPI C/O PAINFUL LUMP TO RIGHT ARMPIT, NO FEVER, HAS HAD IT OVER 5 DAYS AND NOT IMPROVING, DENIES CP/ABD PAIN/N/V/D/FEVER/....NO ALLEVIATING FACTORS BUT AGGRAVATED BY MOVING AND TOUCHING PFSH Past Medical History Asthma: No Blood Disorders: No Anxiety: Yes Depression: Yes Heart Rhythm Problems: No Cancer: No Cardiovascular Problems: No High Cholesterol: No Chemotherapy: No Chest Pain: No Congestive Heart Failure: No COPD: No Diabetes: No Diminished Hearing: No Endocrine: No Gastrointestinal Disorders: Yes Genitourinary: No Hepatitis: Yes (C) Immune Disorder: No Musculoskeletal: Yes Neurologic: No Psychiatric: Yes Reproductive: Yes (PID, GONORRHEA) Respiratory: No Radiation Therapy: No Sleep Apnea: No Thyroid Disease: No Tetanus Vaccination: < 5 Years ?: Unknown LMP: 07/17/17 : 2 Para: 1 : 1 Past Surgical History Abdominal Surgery: No Cardiac Surgery: No Ear Surgery: No Endocrine Surgery: No Eye Surgery: No Genitourinary Surgery: No Gynecologic Surgery: Yes () Oral Surgery: No Thoracic Surgery: No Other Surgery: Yes Social History Alcohol Use: Yes (RARELY) Tobacco Use: Yes (3/4 PPD) Substance Use: Yes (HEROIN, METH) Allergies-Medications (Allergen,Severity, Reaction): Coded Allergies: No Known Allergies (Unverified , 08/24/17) Reported Meds & Prescriptions Reported Meds & Active Scripts Active Tramadol (Tramadol HCl) 50 Mg Tab 50 Mg PO Q4H PRN Bactrim DS (Sulfamethoxazole-Trimethoprim) 800-160 Mg Tab 1 Tab PO BID Zofran Odt (Ondansetron Odt) 4 Mg Tab 4 Mg SL Q8HR PRN Tramadol (Tramadol HCl) 50 Mg Tab 50 Mg PO Q6H PRN Cleocin (Clindamycin HCl) 150 Mg Cap 300 Mg PO Q6HR Acidophilus/l-Sporogenes (Lactobacillus Acidophilus) 1 Tab Tab 1 Tab PO TID Review of Systems Except as stated in HPI: all other systems reviewed are Neg Skin: Positive Lumps Physical Exam Narrative GENERAL: SKIN: Warm and dry. SMALL LUMP ABOUT NICKEL SIZE, INDURATED, NO FLUCTUANCE, NO STREAKING, NO LAD HEAD: Atraumatic. Normocephalic. EYES: Pupils equal and round. No scleral icterus. No injection or drainage. ENT: No nasal bleeding or discharge. Mucous membranes pink and moist. NECK: Trachea midline. No JVD. CARDIOVASCULAR: Regular rate and rhythm. RESPIRATORY: No accessory muscle use. Clear to auscultation. Breath sounds equal bilaterally. GASTROINTESTINAL: Abdomen soft, non-tender, nondistended. Hepatic and splenic margins not palpable. MUSCULOSKELETAL: Extremities without clubbing, cyanosis, or edema. No obvious deformities. NEUROLOGICAL: Awake and alert. No obvious cranial nerve deficits. Motor grossly within normal limits. Five out of 5 muscle strength in the arms and legs. Normal speech. PSYCHIATRIC: Appropriate mood and affect; insight and judgment normal. Data Data Last Documented VS Orders Orders Ed Urine Pregnancytest Poc (08/24/17 04:26) MDM Medical Decision Making Medical Screen Exam Complete: Yes Emergency Medical Condition: Yes Medical Record Reviewed: Yes Differential Diagnosis cellulits v abscess v lymphangitis Narrative Course upon evaluation , no streaking and no fluctuance thus no major e/o abscess/ lymphangitis, only cellulitis, pt is nontoxic and will be treated with outpt po abx Diagnosis Primary Impression: Cellulitis of axilla, right Scripts Tramadol (Tramadol) 50 Mg Tab 50 MG PO Q4H Y for PAIN, #20 TAB 0 Refills Prov: Michael Peoples MD 08/24/17 Sulfamethoxazole-Trimethoprim (Bactrim DS) 800-160 Mg Tab 1 TAB PO BID for Infection, #20 TAB 0 Refills Prov: Michael Peoples MD 08/24/17 Disposition: 01 DISCHARGE HOME Condition: Stable Michael Peoples MD Aug 24, 2017 04:26
== END 2017-08-24 05:08 | disposition home or self-care (01) ==
LOC: NEPE 03:55
DX: L03.111 Cellulitis of right axilla (principal); F41.9 Anxiety disorder, unspecified; F32.9 Major depressive disorder, single episode, unspecified; B19.20 Unspecified viral hepatitis C without hepatic coma; F17.200 Nicotine dependence, unspecified, uncomplicated; Z79.899 Other long term (current) drug therapy
CPT/HCPCS: 84703; 99284

== ENCOUNTER 2017-10-03 16:33 | Emergency (ER) | payer SELFPAY ==
[~2017-10-03] VITALS: Ht 149.9 cm; Wt 50.0 kg
[~2017-10-03 16:33] MED LIST changes: +BACT800T5 PO
[2017-10-03 16:34] VITALS: BP 111/70; PULSE 68; RESP 16; TEMP 99.6; O2SAT 100
[2017-10-03 17:29] LABS: BLOOD, URINE NEG (NEG); COMMENT (UR) CULT NOT INDICATED; CULTURE IF INDICATED CULT NOT INDICATED; GLUCOSE,URINE NEG (NEG); KETONE, URINE TRACE mg/dL (NEG); MUCUS URINE FEW /lpf (OCC); NITRITE,URINE NEG (NEG); PH, URINE 6.5 (5.0-8.5); SQUAMOUS EPITHELIAL CELL URINE 5 /hpf (0-5); URINE COLOR YELLOW (YELLW/STRAW)
[2017-10-03 17:57] LABS: ALT (GPT) 61 U/L (10-53); ANION GAP 9 MEQ/L (5-15); AST (GOT) 39 U/L (15-37); BICARBONATE 23.2 MEQ/L (21.0-32.0); BLOOD UREA NITROGEN 12 MG/DL (7-18); CHLORIDE 107 MEQ/L (98-107); GLOMERULAR FILTRATION RATE 76 ML/MIN (>89); POTASSIUM 3.6 MEQ/L (3.5-5.1); SODIUM (NA) 139 MEQ/L (136-145)
[2017-10-03 18:02] LABS: ALKALINE PHOSPHATASE 61 U/L (45-117); BETA HCG QUANT 6 MIU/ML (0-5); TOTAL BILIRUBIN ADULT 0.9 MG/DL (0.2-1.0)
--- NOTE | 2017-10-03 20:26 | PD ---
HPI Chief Complaint: Housekeeping Associate Problem/Complaint Time Seen by Provider: 19:55 Travel History International Travel<30 days: No Contact w/Intl Traveler<30days: No Traveled to known affect area: No History of Present Illness HPI 26-year-old A1 5 weeks female presents to the emergency room for evaluation of foul smelling vaginal discharge and breast tenderness the past few days. She has been having vaginal discharge for the past month but only noticed the foul odor over the past week. She thought she might have a UTI but was also concerned because her menstrual cycle is late. Patient took tests at home and some were positive and some were negative. States history of hepatitis C and thought that vaginal discharge and nausea could be attributed to that. No other chronic medical conditions. She denies taking any medications daily. Last menstrual cycle was 08/26/17. PFSH Past Medical History Asthma: No Blood Disorders: No Anxiety: Yes Depression: Yes Heart Rhythm Problems: No Cancer: No Cardiovascular Problems: No High Cholesterol: No Chemotherapy: No Chest Pain: No Congestive Heart Failure: No COPD: No Diabetes: No Diminished Hearing: No Endocrine: No Gastrointestinal Disorders: Yes Genitourinary: No Hepatitis: Yes (C) Immune Disorder: No Musculoskeletal: Yes Neurologic: No Psychiatric: Yes Reproductive: Yes (PID, GONORRHEA) Respiratory: No Radiation Therapy: No Sleep Apnea: No Thyroid Disease: No ?: LMP: 08/26/17 : 2 Para: 1 : 1 Past Surgical History Abdominal Surgery: No Cardiac Surgery: No Ear Surgery: No Endocrine Surgery: No Eye Surgery: No Genitourinary Surgery: No Gynecologic Surgery: Yes () Oral Surgery: No Thoracic Surgery: No Other Surgery: Yes Social History Alcohol Use: Yes (RARELY) Tobacco Use: Yes (3/4 PPD) Substance Use: Yes (HEROIN, METH (IN RECOVERY)) Allergies-Medications (Allergen,Severity, Reaction): Coded Allergies: No Known Allergies (Unverified Adverse Reaction, Unknown, 10/03/17) Reported Meds & Prescriptions Reported Meds & Active Scripts Active No Active Prescriptions or Reported Medications Review of Systems Except as stated in HPI: all other systems reviewed are Neg Physical Exam Narrative GENERAL: Well-nourished, well-developed female in no acute distress. Afebrile. Ambulatory. Playing on her phone. SKIN: Focused skin assessment warm/dry. HEAD: Normocephalic. EYES: No scleral icterus. No injection or drainage. NECK: Supple, trachea midline. No JVD or lymphadenopathy. CARDIOVASCULAR: Regular rate and rhythm without murmurs, gallops, or rubs. RESPIRATORY: Breath sounds equal bilaterally. No accessory muscle use. GASTROINTESTINAL: Abdomen soft, non-tender, nondistended. GENITOURINARY: Examined in the presence of the nurse and with sterile gloves Normal external genitalia without lesions or erythema. Vaginal vault without blood. Mild white drainage. Cervical os was closed without drainage. No cervical motion tenderness. Uterus nontender and nonenlarged. Bilateral adnexa nontender without masses. Data Data Last Documented VS Vital Signs Date Time Temp Pulse Resp B/P (MAP) Pulse Ox O2 Delivery O2 Flow Rate FiO2 10/03/17 16:34 99.6 68 16 111/70 (84) 100 Room Air Orders Orders Beta Hcg (Quant/Titer) (10/03/17 16:43) Complete Blood Count With Diff (10/03/17 16:43) Comprehensive Metabolic Panel (10/03/17 16:43) Urinalysis - C+S If Indicated (10/03/17 16:43) Ed Urine Pregnancytest Poc (10/03/17 16:43) Gc And Chlamydia Pcr (10/03/17 20:03) Wet Prep Profile (10/03/17 20:03) Labs Laboratory Tests Test 10/03/17 16:57 10/03/17 17:05 Urine Color YELLOW Urine Turbidity CLEAR Urine pH 6.5 Urine Specific [place] 1.025 Urine Protein TRACE mg/dL Urine Glucose (UA) NEG mg/dL Urine Ketones TRACE mg/dL Urine Occult Blood NEG Urine Nitrite NEG Urine Bilirubin NEG Urine Urobilinogen 2.0 MG/DL Urine Leukocyte Esterase NEG Urine WBC LESS THAN 1 /hpf Urine Squamous Epithelial Cells 5 /hpf Urine Mucus FEW /lpf Microscopic Urinalysis Comment CULT NOT INDICATED Blood Urea Nitrogen 12 MG/DL Creatinine 0.90 MG/DL Random Glucose 95 MG/DL Total Protein 8.7 GM/DL Albumin 4.4 GM/DL Calcium Level 9.1 MG/DL Alkaline Phosphatase 61 U/L Aspartate Amino Transf (AST/SGOT) 39 U/L Alanine Aminotransferase (ALT/SGPT) 61 U/L Total Bilirubin 0.9 MG/DL Sodium Level 139 MEQ/L Potassium Level 3.6 MEQ/L Chloride Level 107 MEQ/L Carbon Dioxide Level 23.2 MEQ/L Anion Gap 9 MEQ/L Estimat Glomerular Filtration Rate 76 ML/MIN Human Chorionic Gonadotropin, Quant 6 MIU/ML [facility] Medical Decision Making Medical Screen Exam Complete: Yes Emergency Medical Condition: Yes Medical Record Reviewed: Yes Differential Diagnosis Normal , PID, chlamydia, gonorrhea, BV Narrative Course 26-year-old A1 about 5 week female presents to the emergency room for evaluation of foul smelling vaginal discharge for the past week. Patient has had discharge for the past month but it only became malodorous over the past week. She is 8 days late for her menstrual cycle. Vital signs stable. Abdomen soft, nontender. Patient is well-appearing, resting comfortably in bed. Moving easily. ED urine test is positive. UA is unremarkable. CBC ordered and pending. CMP is unremarkable. Beta hCG is 6. Patient is too early for ultrasound, has no significant pain, and is not bleeding so there is no indication at this time. Wet prep ordered and pending. GC and chlamydia PCR ordered and pending. Patient signed out the nighttime provider pending results. Referrals: Imaging Engineer Primary Care Physician Additional Instructions: Rest and drink plenty of fluids. Follow-up with an tin flopper. Return to the emergency room for worsening symptoms. Scripts No Active Prescriptions or Reported Meds Disposition: 01 DISCHARGE HOME Condition: Stable Savana Reno Oct 03, 2017 20:26
--- NOTE | 2017-10-03 23:12 | PD ---
Physical Exam Narrative I, Dr. Travis, have reviewed the advance practice practitioner's documentation and am in agreement, met with the patient face to face, made the diagnosis, and the medical decision making was done by me. *My assessment and Findings: test vs. bacterial vaginosis vs. UTI 26yo F who has positive and negative tests at home here with few days of vaginal discharge. Pelvic exam had some white discharge. No abdominal pain. bHCG is only 6, could be really early so will have pt repeat bHCG in 2 days to see what the trend is. LFTelevated but at baseline. UA showed no leukocyte. Culture not indicated. Wet prep negative. Return precautions given. Data Data Last Documented VS Vital Signs Date Time Temp Pulse Resp B/P (MAP) Pulse Ox O2 Delivery O2 Flow Rate FiO2 10/03/17 16:34 99.6 68 16 111/70 (84) 100 Room Air Orders Orders Beta Hcg (Quant/Titer) (10/03/17 16:43) Comprehensive Metabolic Panel (10/03/17 16:43) Urinalysis - C+S If Indicated (10/03/17 16:43) Ed Urine Pregnancytest Poc (10/03/17 16:43) Gc And Chlamydia Pcr (10/03/17 20:03) Wet Prep Profile (10/03/17 20:03) Ed Discharge Order (10/03/17 23:12) Labs Laboratory Tests Test 10/03/17 16:57 10/03/17 17:05 10/03/17 20:40 Urine Color YELLOW Urine Turbidity CLEAR Urine pH 6.5 Urine Specific [place] 1.025 Urine Protein TRACE mg/dL Urine Glucose (UA) NEG mg/dL Urine Ketones TRACE mg/dL Urine Occult Blood NEG Urine Nitrite NEG Urine Bilirubin NEG Urine Urobilinogen 2.0 MG/DL Urine Leukocyte Esterase NEG Urine WBC LESS THAN 1 /hpf Urine Squamous Epithelial Cells 5 /hpf Urine Mucus FEW /lpf Microscopic Urinalysis Comment CULT NOT INDICATED Blood Urea Nitrogen 12 MG/DL Creatinine 0.90 MG/DL Random Glucose 95 MG/DL Total Protein 8.7 GM/DL Albumin 4.4 GM/DL Calcium Level 9.1 MG/DL Alkaline Phosphatase 61 U/L Aspartate Amino Transf (AST/SGOT) 39 U/L Alanine Aminotransferase (ALT/SGPT) 61 U/L Total Bilirubin 0.9 MG/DL Sodium Level 139 MEQ/L Potassium Level 3.6 MEQ/L Chloride Level 107 MEQ/L Carbon Dioxide Level 23.2 MEQ/L Anion Gap 9 MEQ/L Estimat Glomerular Filtration Rate 76 ML/MIN Human Chorionic Gonadotropin, Quant 6 MIU/ML Clue Cells (Wet Prep) NONE SEEN Vaginal Trichomonas (Wet Prep) NONE SEEN Vaginal Yeast (Wet Prep) NONE SEEN Chlamydia trachomatis DNA (PCR) NOT DETECTED Neisseria gonorrhoeae DNA (PCR) NOT DETECTED MDM Supervised Visit with JONATAN: Yes Diagnosis Primary Impression: Vaginal discharge Referrals: Speech Language Specialist Primary Care Physician Patient Instructions: General Instructions Departure Forms: Tests/Procedures Additional Instruction: Rest and drink plenty of fluids. Follow-up with an business development coordinator in 2 days to repeat bHCG. Return to the emergency room for worsening symptoms. Med/Other Pt SpecificInfo: No Change to Meds Scripts No Active Prescriptions or Reported Meds Disposition: 01 DISCHARGE HOME Condition: Stable Zuleika Travismarcos HOANG Oct 03, 2017 23:12
[2017-10-03 23:52] LABS: CHLAMYDIA PCR NOT DETECTED (NOT DETECT); NEISSERIA PCR NOT DETECTED (NOT DETECT)
== END 2017-10-03 23:16 | disposition home or self-care (01) ==
LOC: NEPD 16:33
DX: N89.8 Other specified noninflammatory disorders of vagina (principal); Z32.01 Encounter for pregnancy test, result positive
CPT/HCPCS: 80053; 81001; 84702; 84703; 87210; 87491; 87591; 99283

== ENCOUNTER 2017-10-05 13:17 | Emergency (ER) | payer SELFPAY ==
[~2017-10-05] VITALS: Ht 149.9 cm; Wt 50.0 kg
[2017-10-05 13:20] VITALS: BP 117/69; PULSE 67; RESP 12; TEMP 98.9; O2SAT 99
--- NOTE | 2017-10-05 14:10 | PD ---
HPI Chief Complaint: Ball Holder Problem/Complaint Time Seen by Provider: 13:45 Travel History International Travel<30 days: No Contact w/Intl Traveler<30days: No Traveled to known affect area: No History of Present Illness HPI 26-year-old female presents to the emergency room for evaluation of right- sided cramping and vaginal discharge that started a few hours prior to arrival. Patient came to the emergency room 2 days ago to confirm and because of increased vaginal discharge and was told to return in 2 days for repeat beta hCG. Wet prep, GC, chlamydia, and UA at that time was negative. Patient reports pain has gotten increasingly worse while sitting in the ED. It is localized to the right flank without radiation. She believes she has had RhoGAM in the past. Denies any other chronic medical conditions or daily medications. Last menstrual cycle was 08/26/2017. PFSH Past Medical History Asthma: No Blood Disorders: No Anxiety: Yes Depression: Yes Heart Rhythm Problems: No Cancer: No Cardiovascular Problems: No High Cholesterol: No Chemotherapy: No Chest Pain: No Congestive Heart Failure: No COPD: No Diabetes: No Diminished Hearing: No Endocrine: No Gastrointestinal Disorders: Yes Genitourinary: No Hepatitis: Yes (C) Immune Disorder: No Musculoskeletal: Yes Neurologic: No Psychiatric: Yes Reproductive: Yes (PID, GONORRHEA) Respiratory: No Radiation Therapy: No Sleep Apnea: No Thyroid Disease: No ?: LMP: 08/26/17 : 2 Para: 1 : 1 Past Surgical History Abdominal Surgery: No Cardiac Surgery: No Ear Surgery: No Endocrine Surgery: No Eye Surgery: No Genitourinary Surgery: No Gynecologic Surgery: Yes () Oral Surgery: No Thoracic Surgery: No Other Surgery: Yes Social History Alcohol Use: No Tobacco Use: Yes (3/4 PPD) Substance Use: No (HEROIN, METH (IN RECOVERY)) Allergies-Medications (Allergen,Severity, Reaction): Coded Allergies: No Known Allergies (Unverified Adverse Reaction, Unknown, 10/05/17) Reported Meds & Prescriptions Reported Meds & Active Scripts Active No Active Prescriptions or Reported Medications Review of Systems Except as stated in HPI: all other systems reviewed are Neg Physical Exam Narrative GENERAL: Well-nourished, well-developed female in no acute distress. Afebrile. Ambulatory. SKIN: Focused skin assessment warm/dry. HEAD: Normocephalic. EYES: No scleral icterus. No injection or drainage. NECK: Supple, trachea midline. No JVD or lymphadenopathy. CARDIOVASCULAR: Regular rate and rhythm without murmurs, gallops, or rubs. RESPIRATORY: Breath sounds equal bilaterally. No accessory muscle use. GASTROINTESTINAL: Abdomen soft, nondistended. No tenderness to palpation of the pelvic region. No peritoneal signs. No guarding. No significant CVA tenderness. Data Data Last Documented VS Vital Signs Date Time Temp Pulse Resp B/P (MAP) Pulse Ox O2 Delivery O2 Flow Rate FiO2 10/05/17 13:20 98.9 67 12 117/69 (85) 99 Orders Orders Type And Screen (10/05/17 13:41) Beta Hcg (Quant/Titer) (10/05/17 13:41) Us Pelvis Comp Ball Holder/Non-Preg (10/05/17 ) Labs Laboratory Tests Test 10/05/17 14:00 Human Chorionic Gonadotropin, Quant 2 MIU/ML MDM Medical Decision Making Medical Screen Exam Complete: Yes Emergency Medical Condition: Yes Medical Record Reviewed: Yes Differential Diagnosis Chlamydia, PID, UTI, ectopic , subchorionic hemorrhage, normal Narrative Course 26-year-old A1 approximately 5 weeks by date female presents to the emergency room for evaluation of bleeding, right-sided cramping, and repeat hCG. Patient had hCG 2 days ago that was 6 and was told to return in 2 days for repeat. States today she developed vaginal bleeding and cramping that is mostly in her right lower back. No indication for repeat CBC or BMP as they were just drawn 2 days ago. Repeat beta-hCG shows level of 2. Ultrasound shows a nonvisualized left ovary but otherwise unremarkable. Patient is experiencing spontaneous miscarriage or chemical . She was reassured and told to follow-up with her gas station operator. I spoke to attending physician, Dr. Domínguez, who agrees patient does not need to come back again in 2 days. Told to return for any worsening symptoms. She understands and agrees to plan. Diagnosis Primary Impression: Spontaneous miscarriage Referrals: Primary Care Physician Additional Instructions: Follow-up with an BLOWING WEASAND Return sooner for worsening symptoms. Scripts No Active Prescriptions or Reported Meds Disposition: 01 DISCHARGE HOME Condition: Stable Savana Reno Oct 05, 2017 14:10
[2017-10-05 14:28] LABS: BETA HCG QUANT 2 MIU/ML (0-5)
--- NOTE | 2017-10-05 15:24 | RADRPT ---
EXAM DATE/TIME: 10/05/2017 14:26 [place] COMPARISON: US PELVIS - COMPLETE (KNOTTER,NON-PREG), October 02, 2016, 11:57. CT ABDOMEN & PELVIS W CONTRAST, [place] 2016, 16:47. INDICATIONS : Cramping and bleeding. MEDICAL HISTORY : PID. Gonornhea. Hepatitis C. Scoliosis. UTI. Substance abuse. SURGICAL HISTORY : None. ENCOUNTER: Initial ACUITY: 1 day PAIN SCORE: 6/10 LOCATION: Bilateral pelvis MEASUREMENTS: UTERUS: 7.5 x 5.6 x 4.4 cm ENDOMETRIAL STRIPE: 5 mm RIGHT OVARY: 3.3 x 2.4 x 1.9 cm LEFT OVARY: not seen FINDINGS: UTERUS: The myometrium has homogeneous echotexture without mass. RIGHT OVARY: Ovary contains no mass or significant cystic lesion. LEFT OVARY: Not visualized. MISCELLANEOUS: No free fluid. CONCLUSION: 1. Left ovary is not visualized. 2. Otherwise, unremarkable pelvic ultrasound examination. Russell Quick MD on October 05, 2017 at 15:20 Board Certified Radiologist. This report was verified electronically.
== END 2017-10-05 16:02 | disposition home or self-care (01) ==
LOC: NEPD 13:17
DX: O03.9 Complete or unspecified spontaneous abortion without complication (principal); O99.331 Smoking (tobacco) complicating pregnancy, first trimester; O99.341 Other mental disorders complicating pregnancy, first trimester; F41.9 Anxiety disorder, unspecified; F32.9 Major depressive disorder, single episode, unspecified; Z86.19 Personal history of other infectious and parasitic diseases; Z3A.01 Less than 8 weeks gestation of pregnancy; Z34.01 Encounter for supervision of normal first pregnancy, first trimester
CPT/HCPCS: 76856; 84702; 86850; 86900; 86901; 99284

== ENCOUNTER 2018-02-03 23:24 | Emergency (ER) | payer OTHER ==
[~2018-02-03] VITALS: Ht 149.9 cm; Wt 50.0 kg
[2018-02-03 23:51] VITALS: BP 129/59; PULSE 73; RESP 16; TEMP 99.1; O2SAT 99
[2018-02-04] MEDS ORDERED: SULFAMETHOXAZOLE-TRIMETHOPRIM DS 800-160 MG TAB PO ONE (01:15)
[2018-02-04] MEDS ORDERED: CLINDAMYCIN 150 MG CAP PO ONE (01:15)
[2018-02-04] MEDS ORDERED: IBUPROFEN 600 MG TAB PO ONE (01:15)
[2018-02-04] MEDS ORDERED: MOBI15TA PO (01:18)
[2018-02-04] MEDS ORDERED: BACT800T5 PO (01:18)
[2018-02-04] MEDS ORDERED: CLIN150C14 PO (01:18)
--- NOTE | 2018-02-04 01:18 | PD ---
HPI Chief Complaint: Skin Problem Time Seen by Provider: 00:46 Travel History International Travel<30 days: No Contact w/Intl Traveler<30days: No Traveled to known affect area: No History of Present Illness HPI 27 years old female complaining of painful lump on the right buttock. Patient states that she has a painful lump on the buttock about a week ago. Patient states that small amounts of pus was draining out of it. Patient states that he has a new lump on the buttock the past several days has had increasing pain and swelling. Patient denies any fever chills. Patient states that she is up- to-date with TD booster. PFSH Past Medical History Asthma: No Blood Disorders: No Anxiety: Yes Depression: Yes Heart Rhythm Problems: No Cancer: No Cardiovascular Problems: No High Cholesterol: No Chemotherapy: No Chest Pain: No Congestive Heart Failure: No COPD: No Diabetes: No Diminished Hearing: No Endocrine: No Gastrointestinal Disorders: Yes Genitourinary: No Hepatitis: Yes (C) Immune Disorder: No Musculoskeletal: Yes Neurologic: No Psychiatric: Yes Reproductive: Yes (PID, GONORRHEA) Respiratory: No Radiation Therapy: No Sleep Apnea: No Thyroid Disease: No ?: Not : 2 Para: 1 : 1 Past Surgical History Abdominal Surgery: No Cardiac Surgery: No Ear Surgery: No Endocrine Surgery: No Eye Surgery: No Genitourinary Surgery: No Gynecologic Surgery: Yes () Oral Surgery: No Thoracic Surgery: No Other Surgery: Yes Social History Alcohol Use: No Tobacco Use: Yes (01/27 PPD) Substance Use: No (HEROIN, METH (IN RECOVERY)) Allergies-Medications (Allergen,Severity, Reaction): Coded Allergies: No Known Allergies (Unverified Adverse Reaction, Unknown, 02/03/18) Reported Meds & Prescriptions Reported Meds & Active Scripts Active No Active Prescriptions or Reported Medications Review of Systems General / Constitutional: No: Fever Eyes: No: Visual changes HENT: No: Headaches Cardiovascular: No: Chest Pain or Discomfort Respiratory: No: Shortness of Breath Gastrointestinal: No: Abdominal Pain Genitourinary: No: Dysuria Musculoskeletal: No: Pain Skin: No Rash Neurologic: No: Weakness Psychiatric: No: Depression Endocrine: No: Polydipsia Hematologic/Lymphatic: No: Easy Bruising Physical Exam Narrative GENERAL: Well-nourished, well-developed patient. SKIN: Focused skin assessment warm/dry. HEAD: Normocephalic. EYES: No scleral icterus. No injection or drainage. NECK: Supple, trachea midline. No JVD or lymphadenopathy. CARDIOVASCULAR: Regular rate and rhythm without murmurs, gallops, or rubs. RESPIRATORY: Breath sounds equal bilaterally. No accessory muscle use. GASTROINTESTINAL: Abdomen soft, non-tender, nondistended. MUSCULOSKELETAL: No cyanosis, or edema. BACK: Nontender without obvious deformity. No CVA tenderness. Patient has nodular lesion in the right buttock area with redness swelling tenderness. Patient has a small area of induration medial to that. Mild tenderness on palpation. Data Data Last Documented VS Vital Signs Date Time Temp Pulse Resp B/P (MAP) Pulse Ox O2 Delivery O2 Flow Rate FiO2 02/03/18 23:51 99.1 73 16 129/59 (82) 99 Orders Orders Wound Culture And Gram Stain (02/04/18 01:09) [facility] Medical Decision Making Medical Screen Exam Complete: Yes Emergency Medical Condition: Yes Differential Diagnosis Differential diagnosis including cellulitis, abscess. Narrative Course 27 years old female with painful nodular lesion right buttock area. I&D was done. Motrin 600 mg p.o. Bactrim DS 1 tablet p.o. given. Clindamycin 300 mg p.o. Procedures Procedure Narrative I&D procedure: 1% lidocaine with epinephrine local anesthesia. Betadine wash. 1 cm incision was made on the nodular lesion. Moderate amount of pus recovered. Wound culture obtained. 0.5 inch packing applied. Dressing applied. Diagnosis Primary Impression: Abscess of right buttock Patient Instructions: General Instructions Additional Instructions: Take medication as directed. Good wound clean and dry. Return in 2 days for packing removal. Med/Other Pt SpecificInfo: Prescription(s) given Scripts Clindamycin (Clindamycin) 150 Mg Cap 300 MG PO QID for Infection, #80 CAP 0 Refills Prov: Ray Buckner MD 02/04/18 Sulfamethoxazole-Trimethoprim (Bactrim DS) 800-160 Mg Tab 1 TAB PO BID for Infection, #20 TAB 0 Refills Prov: Ray Buckner MD 02/04/18 Meloxicam (Mobic) 15 Mg Tab 15 MG PO DAILY for Pain, #20 TAB 0 Refills Prov: Ray Buckner MD 02/04/18 Disposition: 01 DISCHARGE HOME Condition: Stable Ray Buckner MD Feb 04, 2018 01:18
== END 2018-02-04 01:34 | disposition home or self-care (01) ==
LOC: NEPD 23:24
DX: L02.31 Cutaneous abscess of buttock (principal); F17.200 Nicotine dependence, unspecified, uncomplicated
CPT/HCPCS: 10061; 86403; 87070; 87186

== ENCOUNTER 2018-04-04 02:06 | Emergency (ER) | payer OTHER ==
[~2018-04-04 02:06] MED LIST changes: -CLIN150 PO; +CLIN150C14 PO; -LACT PO; +MOBI15TA PO; -TRAM50TA PO; -ZOFR4TAB3 SL
--- NOTE | 2018-04-04 02:14 | PD ---
HPI Time Seen by Provider: 02:13 History of Present Illness HPI Patient on my initial assessment requesting to see [facility] nurse, I have offered medical assistance and she does not require any at this time. [facility] nurse in the room interviewing patient will reassess after examination if one is to occur. PFSH Past Medical History Asthma: No Blood Disorders: No Anxiety: Yes Depression: Yes Heart Rhythm Problems: No Cancer: No Cardiovascular Problems: No High Cholesterol: No Chemotherapy: No Chest Pain: No Congestive Heart Failure: No COPD: No Diabetes: No Diminished Hearing: No Endocrine: No Gastrointestinal Disorders: Yes Genitourinary: No Hepatitis: Yes (C) Immune Disorder: No Musculoskeletal: Yes Neurologic: No Psychiatric: Yes Reproductive: Yes (PID, GONORRHEA) Respiratory: No Radiation Therapy: No Sleep Apnea: No Thyroid Disease: No : 2 Para: 1 : 1 Past Surgical History Abdominal Surgery: No Cardiac Surgery: No Ear Surgery: No Endocrine Surgery: No Eye Surgery: No Genitourinary Surgery: No Gynecologic Surgery: Yes () Oral Surgery: No Thoracic Surgery: No Other Surgery: Yes Social History Alcohol Use: No Tobacco Use: Yes (3/4 PPD) Substance Use: No (HEROIN, METH (IN RECOVERY)) Allergies-Medications (Allergen,Severity, Reaction): Coded Allergies: No Known Allergies (Unverified Adverse Reaction, Unknown, 04/04/18) Reported Meds & Prescriptions Reported Meds & Active Scripts Active No Active Prescriptions or Reported Medications MDM Scripts No Active Prescriptions or Reported Meds Zack Grewal MD April 04, 2018 02:14
--- NOTE | 2018-04-04 06:35 | PD ---
Physical Exam Exam Limitations: Other: (Patient declined initial examination) [facility] Supervised Visit with JONATAN: No Narrative Course This is a 27-year-old female presents emergency department for evaluation by [facility] nurse. My initial history the patient she has no physical complaints and warm workup at this time. She denies any traumatic injuries, denies any bleeding. She did endorse some minimal abdominal cramping. I offered medical records coder this this time and she declined. My pain she is medically stable to proceed with the same examination. Will discuss with the oncoming provider at 07 100 shift change to reassess the patient for possible further workup or examination. Scripts No Active Prescriptions or Reported Meds Condition: Stable Zack Grewal MD April 04, 2018 06:35
== END 2018-04-04 06:35 | disposition left against medical advice (07) ==
LOC: NEPF 02:06
DX: R10.9 Unspecified abdominal pain (principal); F41.9 Anxiety disorder, unspecified; F32.9 Major depressive disorder, single episode, unspecified; F17.200 Nicotine dependence, unspecified, uncomplicated; Z86.19 Personal history of other infectious and parasitic diseases
CPT/HCPCS: 99281